=== PATIENT | male | born 1950 | race Caucasian/White ===

== ENCOUNTER → 2023-05-31 11:18 | Outpatient (REF) | payer MEDICARE, OTHER, SELFPAY ==
[2023-05-31 11:40] LABS: HDL Cholesterol 37 mg/dl; LDL Cholesterol, Calculated 54 mg/dl; Total Cholesterol 103 mg/dl (50-199); Triglyceride 64 mg/dl (10-149); Very Low Density Lipoprotein 12 mg/dl (0-30)
== END ==
LOC: OLABN 11:18
PROVIDERS: ATTENDING PHYSICIAN Student in an Organized Health Care Education/Training Program
DX: E78.5 Hyperlipidemia, unspecified (principal)
CPT/HCPCS: 36415; 80061

== ENCOUNTER → 2023-06-11 17:28 | Outpatient (REF) | payer MEDICARE, OTHER, SELFPAY | LOC: OLABN 17:28 | PROVIDERS: ATTENDING PHYSICIAN Student in an Organized Health Care Education/Training Program | DX: R05.9 Cough, unspecified (principal); M62.81 Muscle weakness (generalized) | CPT/HCPCS: 87502 ==

== ENCOUNTER → 2023-06-12 09:19 | Outpatient (REF) | payer MEDICARE, OTHER, SELFPAY ==
[2023-06-12 10:27] LABS: % Basophils 0.4 % (0-2); % Eosinophils 4.5 % (0-6); % Immature Granulocytes 0.2 % (0-0.5); % Lymphocytes 17.6 % (20.5-51.1); % Neutrophils 68.3 % (42.2-75.2); Absolute Eosinophils 0.4 10^3/uL (0-0.7); Absolute Lymphocytes 1.7 10^3/uL (1.2-3.4); Absolute Monocytes 0.9 10^3/uL (0.1-0.6); Absolute Neutrophils 6.7 10^3/uL (1.4-6.5); Hematocrit 29.1 % (39.0-52.0); Hemoglobin 8.9 g/dL (13.0-18.0); Mean Corp Hgb Conc. 30.6 g/dL (33.0-37.0); Mean Corpuscular Hgb 24.8 pg (27.0-31.0); Mean Corpuscular Volume 81.1 fL (80.0-94.0); Mean Platelet Volume 10.7 fL (7.4-10.4); Nucleated Red Blood Cells % 0 % (-); Platelet Count 202 10^3/uL (130-400); Red Blood Cell Count 3.59 10^6/uL (4.70-6.10); Red Cell Dist. Width 14.6 % (11.5-14.5); White Blood Cell Count 9.9 10^3/uL (4.8-10.8)
== END ==
LOC: OLABN 09:19
PROVIDERS: ATTENDING PHYSICIAN Student in an Organized Health Care Education/Training Program
DX: M62.81 Muscle weakness (generalized) (principal)
CPT/HCPCS: 36415; 85025

== ENCOUNTER → 2023-06-14 11:12 | Outpatient (REF) | payer MEDICARE, OTHER, SELFPAY ==
[2023-06-14 11:38] LABS: % Basophils 0.4 % (0-2); % Eosinophils 5.3 % (0-6); % Immature Granulocytes 0.4 % (0-0.5); % Lymphocytes 17.9 % (20.5-51.1); % Monocytes 9.2 % (1.7-9.3); % Neutrophils 66.8 % (42.2-75.2); Absolute Eosinophils 0.5 10^3/uL (0-0.7); Absolute Lymphocytes 1.7 10^3/uL (1.2-3.4); Absolute Monocytes 0.9 10^3/uL (0.1-0.6); Absolute Neutrophils 6.3 10^3/uL (1.4-6.5); Hematocrit 26.8 % (39.0-52.0); Hemoglobin 8.6 g/dL (13.0-18.0); Mean Corp Hgb Conc. 32.1 g/dL (33.0-37.0); Mean Corpuscular Hgb 25.4 pg (27.0-31.0); Mean Corpuscular Volume 79.3 fL (80.0-94.0); Mean Platelet Volume 10.5 fL (7.4-10.4); Nucleated Red Blood Cells % 0 % (-); Platelet Count 184 10^3/uL (130-400); Red Blood Cell Count 3.38 10^6/uL (4.70-6.10); White Blood Cell Count 9.4 10^3/uL (4.8-10.8)
== END ==
LOC: OLABN 11:12
PROVIDERS: ATTENDING PHYSICIAN Student in an Organized Health Care Education/Training Program
DX: M62.81 Muscle weakness (generalized) (principal)
CPT/HCPCS: 36415; 85025

== ENCOUNTER 2023-10-29 01:27 | Inpatient (IN) | payer MEDICARE, OTHER, SELFPAY ==
[2023-10-28] VITALS (7 sets, daily range): BP systolic 81–102; BP diastolic 32–57; BMI 25.1
--- NOTE | 2023-10-28 23:10 | ED.GENMED ---
History of Present Illness
General
Chief Complaint: Breathing Problem
Source: patient, ambulance crew, detention and previous hospital records (Previous hospitalization for urosepsis June 2022. Previous ED visits November 2022 with complaints of muscle tremors of the extremities)
Exam Limitations: clinical condition
Time Seen by Provider: 10/28/23 23:01
Nursing documentation reviewed up to this point in time: agreed with
History of Present Illness
History of Present Illness:
This is a 73-year-old gentleman, chronic resident of a local detention with history of dementia, diabetes, chronic kidney disease, CAD, seizure disorder with prior hospitalization here June 2022 for urosepsis.
He presents to the ED via EMS after apparent witnessed by detention staff to have an episode of vomiting with apparent aspiration and subsequent hypoxia with pulse ox reportedly in the 70s. Upon EMS arrival patient was obtunded, sonorous
respirations but respiratory status promptly improved with repositioning of the head/opening his airway and placing on nonrebreather mask with improvement in pulse ox to 95% and end-tidal CO2 reportedly 25 to 30%. Patient sensorium promptly
improved and is now awake, answering simple questions appropriately.
Heel Builder reports that patient did not require suctioning.
According to detention records patient is DNR status.
He arrives to the ED awake but moderately lethargic, opens his eyes promptly to verbal stimuli and is able to answer simple questions appropriately.
Patient generally does not require supplemental oxygen.
History of seizure disorder, maintained on Keppra but no report of recent seizures.
Past History
Past History
ED Past Medical History: CAD, HTN, Hypercholesterolemia, IDDM, MD, Renal failure, Seizures and Other (Dementia, urosepsis June 2022)
ED Past Surgical History: Cardiac (Stents X 3)
Social History
Tobacco: Former smoker
Alcohol: Occasional
Drug: None
Personal: Other
Living: detention
Employment: Other (imprisoned)
Family History
Family History: Unable to obtain
Phy Exam
Physical Exam
Physical Exam:
GENERAL: 73-year-old gentleman appears older than stated age, awake, mildly lethargic, opens his eyes promptly to verbal stimuli and looks to the examiner. Able to answer simple yes/no questions appropriately. Moderate resting tachypnea noted.
Nonrebreather mask in place. Intermittent harsh cough is noted.
EYE: pupils equal and reactive. anicteric
NECK: Supple, nontender, no meningismus, no significant adenopathy.
ENT: Whitish phlegm/thin liquid noted anterior chest wall and within rodriguez. Oral mucosa is moist.
CARDIAC: Regular rate and rhythm. no murmur.
LUNGS: Moderate resting tachypnea. Intermittent harsh cough. Mildly decreased breath sounds throughout with scattered end expiratory wheezing.
ABDOMEN: Rotund, soft, nondistended, without focal tenderness, no r/g, normoactive BS.
NEUROLOGICAL: Awake, mildly lethargic, oriented x 2, no focal neuro deficits.
SKIN: Warm and dry, mildly pale in color, skin intact. No rash.
MUSCULOSKELETAL: No C/C/E. peripheral pulses are full and equal b/l. No palpable tenderness.
PSYCH: Normal and appropriate interaction.
Scores
Heart Failure Risk
Heart Failure Risk Score: Yes
History of Stroke or TIA: No
History of intubation for respiratory distress: No
Heart rate on ED arrival >/= 110: No
SaO2 <90% on arrival on room air: Yes
HR >/=110 during 3min walk test (or too ill to perform test): Yes
ECG has acute ischemic changes: No
Urea >/=12mmol/L (BUN 33.6mg/dL): No
Serum CO2>/=35mmol/L: No
Troponin I or T elevated to MD Level (0.4mg/dL): No
NT-proBNP >/=5,000ng/L (5,000pg/ml): No
HF Risk Score: 3
Admission Status: HIGH RISK 15.9% Consider SNF treatment or admission to hospital
Course
Orders/Labs/Results
Orders:
Orders
10/28/23 23:05
Electrocardiogram (*1) Urgent
Reason for Study: Other
Other Reason for Exam: sepsis
Cardiac Monitoring- Treatment ONCE
EKG- Treatment ONCE
O2 Therapy [RESP] Urgent
Non-Rebreather Mask: Yes
Titrate/Wean O2 to maintain O2 sat greater than (%): 92
Pulse Ox/cont/shift [RESP] Urgent
Quantity: 1
10/28/23 23:06
Suctioning- Treatment ONCE
CR Chest Portable - 1 View Urgent
Comment:
Reason For Exam: sob, hypoxia
Reason Study Needs to be Portable: Unable to Transport
10/28/23 23:09
0.9% Sodium Chloride 1000 ml [Nss] 2,300 ml IV NOW STA
10/28/23 23:23
Straight cath- Treatment ONCE
Ipratropium/Albuterol Sulfate [Duoneb] 3 ml INH R NOW ONE
10/28/23 23:26
COVID-19 Antigen Urgent
Source: Nasal Swab
Complete Blood Count/With Diff Urgent
Comprehensive Metabolic Panel Urgent
Lactic Acid Q4H
Comment: CANCEL 2nd LACTIC ACID IF 1st LACTIC ACID IS LESS THAN 2
NT-proBNP Urgent
Troponin I Urgent
Blood Culture Q30M
ZOHREH Source: Blood/Venous
Specimen Description:
10/28/23 23:43
Urinalysis Reflex To Culture Urgent
Date Specimen was Collected: 10/28/23
Time Specimen was Collected: 23:40
Urine Microscopic Reflex Cult Urgent
10/28/23 23:45
Blood Culture Q30M
ZOHREH Source: Blood/Venous
Specimen Description:
10/29/23 00:17
Aztreonam [Azactam] 2,000 mg IV NOW STA
Vancomycin 2000 mg IVPB x 1 LOADING DOSE Vancomycin [Vancocin] 2,000 mg 0.9% Sodium Chloride 500 ml [Nss] 500 ml IV NOW
10/29/23 03:15
Lactic Acid Q4H
Comment: CANCEL 2nd LACTIC ACID IF 1st LACTIC ACID IS LESS THAN 2
Abnormal Lab Results
10/28/23 10/28/23
23:26 23:43
RBC 3.44 L 10^6/uL
(4.70-6.10)
Hgb 8.3 L g/dL
(13.0-18.0)
Hct 26.2 L %
(39.0-52.0)
MCV 76.2 L fL
(80.0-94.0)
MCH 24.1 L pg
(27.0-31.0)
MCHC 31.7 L g/dL
(33.0-37.0)
RDW 16.0 H %
(11.5-14.5)
Absolute Lymphs (auto) 0.8 L 10^3/uL
(1.2-3.4)
Absolute Monos (auto) 0.9 H 10^3/uL
(0.1-0.6)
Lymphocytes % 13.5 L %
(20.5-51.1)
Monocytes % 14.0 H %
(1.7-9.3)
Chloride 110 H mmol/L
(98-107)
Carbon Dioxide 21 L mmol/L
(22-30)
BUN 33 H mg/dl
(9-20)
Creatinine 3.1 H mg/dL
(0.7-1.3)
Glucose 135 H mg/dl
(70-99)
Total Protein 6.1 L g/dl
(6.3-8.2)
Urine Ketones Trace A
(Negative)
Ur Occult Blood Reflex 1+ A
(Negative)
Urine Albumin (Reflex) 3+ A
(Neg - Trace)
10/28/23 23:26
10/28/23 23:26
Vital Signs
Initial and Last Documented VS:
Initial Vital Signs
Pulse Resp BP Pulse Ox
95 32 83/57 91
10/28/23 23:04 10/28/23 23:04 10/28/23 23:04 10/28/23 23:04
Last Documented Vital Signs
Temp Pulse Resp BP Pulse Ox
99.4 F 95 32 83/57 91
10/28/23 23:18 10/28/23 23:04 10/28/23 23:04 10/28/23 23:04 10/28/23 23:04
MDM/Problems Addressed
Differential Diagnosis Includes:
Acute hypoxic respiratory failure, concern for aspiration pneumonia, healthcare associated pneumonia, CHF, ACS.
Patient noted to be hypotensive, concern for sepsis syndrome/SIRS.
Pulse ox currently 96 to 97% on nonrebreather mask with end-tidal CO2 at 40.
Will check labs, COVID-19 antigen, lactic acid, blood cultures, urinalysis with reflex to culture, troponin and BNP.
Will check portable chest x-ray, EKG.
Will plan for oral suctioning, nebulizer treatment, continue supplemental oxygen.
IV fluid bolus for hypotension. Consider pressors if needed.
Patient is currently afebrile and no reported fever as per detention staff.
Chronic conditions affecting care: DM, CAD, COPD, Neurological disorder and Kidney disease
*Radiology
Radiology exam reviewed: preliminary read by ED provider (Portable chest x-ray shows no evidence of CHF, I question an early infiltrate left base-new compared to previous film June 2022.)
*Pulse Oximetry
Patient hypoxic: yes
*EKG
Interpreted by ED Provider?: Yes
Comparison EKG: no changes (unchanged from previous save for heart rate has increased from 59 to now 94)
Rate: normal
Rhythm: sinus
[place]: normal axis
Interval: normal interval
QRS Pattern: low voltage
Ischemia: non-specific ST changes
*Railroad Car Letterer Interpretation
Rate: normal
Interpretation: normal
Rhythm: sinus
*Critical Care Note
Total Time (30-74mins, 75-104mins- exclusive of procedures): 30
comment:
Critical care statement: A total of 30 minutes of critical care time was provided for this patient. This includes management of unstable vital signs, evaluation of the patient at bedside, reviewing the patient's pertinent medical records, discussion
with consultants, review of old EKGs and review of pertinent medical records. This time with separate from time utilized to perform the aforementioned documented procedures
Update Note
Update Note:
10/29/2023 0019 AM
Patient is much more awake and alert. Continues with nonproductive cough but oxygen successfully weaned from nonrebreather mask to nasal cannula.
Blood pressure improved after IV fluid bolus now at 100 systolic.
Labs show moderate but stable anemia. Normal white blood cell count.
Acute on chronic kidney disease with creatinine trending up from 1.6 to now 3.1. Lactic acid is normal. Troponin is negative, similar to previous.
BNP is elevated at 1800, no old BNP's to compare. No evidence of CHF on chest x-ray and no prior history of CHF, overall improved after IV fluid bolus.
There is concern for a subtle infiltrate left lower lobe, behind the heart thus we will initiate broad-spectrum antibiotics for coverage of potential gram-negative pneumonia/healthcare associated pneumonia.
Will admit to hospitalist service.
ED Attending Note
-
Portions of this chart may have been created with voice recognition software.� Occasional wrong word or��sound alike� substitutions may have occurred due to the inherent limitations of voice recognition software.
Discharge Plan
Departure
Patient Disposition: Admit
Date of Disposition: 10/29/23
Time of Disposition: 00:24
Admit to: Telemetry
Admit to doctor: Shahzad
Presentation/result/management discussed w/ accepting MD/DO: Hospitalist
Condition: Serious
Discharge Problem:
HCAP (healthcare-associated pneumonia), Acute hypoxemic respiratory failure, Acute on chronic renal failure, concern for aspiration event, SIRS (systemic inflammatory response syndrome), Hypotension r/o sepsis
Prescriptions:
No Action
donepezil 10 MG tablet
10 mg PO HS
lisinopril 10 MG tablet
10 mg PO BID
folic acid 1 MG tablet
1 mg PO DAILY
aspirin 81 MG tablet,chewable
81 mg PO DAILY
amlodipine 10 MG tablet
10 mg PO DAILY 0RF
acetaminophen [Tylenol] 325 mg Tablet
650 mg PO Q4H PRN (Reason: mild pain/fever>100.4)
hydralazine 25 mg Tablet
25 mg PO BID
bisacodyl 10 mg Suppository
10 mg WA DAILY PRN (Reason: if mom ineffective)
escitalopram oxalate [Lexapro] 20 mg Tablet
20 mg PO DAILY
memantine [Namenda] 10 mg Tablet
10 mg PO BID
lactulose 10 gram/15 mL Solution
10 g PO HS PRN (Reason: lack of bm)
potassium chloride 20 mEq Tablet Extended Release
20 meq PO DAILY
levetiracetam [Keppra] 500 mg Tablet
500 mg PO BID
melatonin 3 mg Tablet
3 mg PO HS PRN (Reason: insomnia)
cyanocobalamin (vitamin B-12) 500 mcg Tablet
500 mcg PO WE
simvastatin [Zocor] 20 mg Tablet
20 mg PO HS
gabapentin 100 mg Capsule
100 mg PO BID
ferrous gluconate 324 mg (38 mg iron) Tablet
324 mg PO BID
insulin glargine [Basaglar KwikPen U-100 Insulin] 100 unit/mL (3 mL) Insulin Pen
10 unit SC HS
tamsulosin 0.4 MG capsule
0.4 mg PO QPM
Novolin N NPH U-100 Insulin 100 unit/mL Suspension
6 unit SC DAILY@1630
Novolin N NPH U-100 Insulin 100 unit/mL Suspension
10 unit SC DAILY
clonazepam 0.125 mg tablet,disintegrating
0.125 mg PO HS
clonazepam 0.25 mg tablet,disintegrating
0.25 mg PO DAILY PRN (Reason: tremor ) Qty: 10 0RF
levetiracetam [Keppra] 750 mg tablet
750 mg PO DAILY Qty: 30 0RF
Rx Instructions:
Continue to take 500 mg of Keppra in the morning, but take 750 mg of Keppra in the evening.
Interventions
Interventions:
*Risk Screen - Suicide Last Done: 10/28/23 23:04
*General Assessment Last Done: 10/28/23 23:04
*Neglect/Abuse Screening Last Done: 10/28/23 23:04
*ED COVID-19 Vaccine History Last Done: 10/28/23 23:04
Discharge Date and Time
Print Language: PORTUGUESE
[2023-10-28] MEDS: NSS 2300 ML IV (23:28)
[2023-10-28] MEDS: DUONEB 3 ML INH (23:33)
[2023-10-28 23:46] LABS: % Basophils 0.3 % (0-2); % Eosinophils 5.2 % (0-6); % Immature Granulocytes 0.3 % (0-0.5); % Lymphocytes 13.5 % (20.5-51.1); % Neutrophils 66.7 % (42.2-75.2); Absolute Eosinophils 0.3 10^3/uL (0-0.7); Absolute Lymphocytes 0.8 10^3/uL (1.2-3.4); Absolute Monocytes 0.9 10^3/uL (0.1-0.6); Absolute Neutrophils 4.1 10^3/uL (1.4-6.5); Hematocrit 26.2 % (39.0-52.0); Hemoglobin 8.3 g/dL (13.0-18.0); Mean Corp Hgb Conc. 31.7 g/dL (33.0-37.0); Mean Corpuscular Hgb 24.1 pg (27.0-31.0); Mean Corpuscular Volume 76.2 fL (80.0-94.0); Mean Platelet Volume 10.3 fL (7.4-10.4); Nucleated Red Blood Cells % 0 % (-); Platelet Count 198 10^3/uL (130-400); Red Blood Cell Count 3.44 10^6/uL (4.70-6.10); White Blood Cell Count 6.2 10^3/uL (4.8-10.8)
[2023-10-28 23:51] LABS: Urine Albumin 3+ (Neg - Trace); Urine Bilirubin Negative (Negative); Urine Character Clear (Clear); Urine Color Yellow; Urine Glucose Negative (Negative); Urine Ketone Trace (Negative); Urine Leukocyte Negative (Negative); Urine Nitrite Negative (Negative); Urine Occult Blood 1+ (Negative); Urine Urobilinogen Negative (Neg - 1+)
[2023-10-29] VITALS (41 sets, daily range): BP systolic 78–162; BP diastolic 30–91; BMI 25.2
[2023-10-29] LABS: ALT (SGPT) 16 U/L (0-50); AST (SGOT) 26 U/L (17-59); Albumin 3.5 g/dl (3.5-5.0); Alkaline Phosphatase 92 U/L (38-126); Blood Urea Nitrogen 33 mg/dl (9-20); Calcium 8.5 mg/dl (8.4-10.2); Carbon Dioxide 21 mmol/L (22-30); Chloride 110 mmol/L (98-107); Estimated Creatinine Clearance 22 ml/min; Glucose 135 mg/dl (70-99); Potassium 4.4 mmol/L (3.5-5.1); Sodium 140 mmol/L (135-145); Total Bilirubin 0.3 mg/dl (0.2-1.3); Total Protein 6.1 g/dl (6.3-8.2)
[2023-10-29 00:01] LABS: Lactic Acid 0.7 mmol/L (0.7-2.0)
[2023-10-29 00:04] LABS: COVID-19 Antigen Negative (Negative)
[2023-10-29 00:12] LABS: NT-proBNP 1790 pg/ml; Troponin I 0.025 ng/ml
[2023-10-29] MEDS: AZACTAM 2000 MG IV (00:32)
[2023-10-29 00:33] LABS: Urine Amorphous Seen
[2023-10-29 00:38] LABS: Urine Bacteria Many (Negative); Urine Mucus Few; Urine Squamous Cell >30 /LPF (Few)
[2023-10-29] MEDS: VANCOCIN 540 MG IV (00:48)
[2023-10-29] MEDS: NSS 1000 IV (01:14)
--- NOTE | 2023-10-29 01:18 | HPS.HSE ---
Family Physician
-
Family Physician: Louie Darden DO
Chief Complaint
-
Lethargy / Hypoxemia
History of Present Illness
Patient is a 73y M with PMH significant for dementia, DM-II and CKD who presents to ED from [facility] for evaluation of new cough, hypoxemia and lethargy. History obtained primarily from MD record and ED staff given patient's baseline dementia.
Patient is arousable and will answer Y/N questions - but cannot recall why he was brought to the ED. He denies any difficulty eating / choking / etc. He denies any pain at present. He does admit to sense of SOB at present. No other complaints
from patient.
NH states that patient was found this evening to be lethargic / poorly responsive. He was diaphoretic with coarse breath sounds and 'moist' cough. He had SpO2 measured at 68% on room air. Afebrile. Normal fingerstick glucose.
Patient was transported to ED for further evaluation and treatment.
Medical History
Past Medical History
Past Medical History: Reports Other
Additional Past Medical History:
Senile Dementia with Behavioral Disturbance
DM-II with Neuropathy and Nephropathy
Hypertension
JAMILAH
CKD III
Iron Deficiency Anemia
BPH / Chronic Indwelling Engel Catheter
ASCVD
Past Surgical History: Reports Other
Additional Past Surgical History:
PTCA with Stents
TURBT
Rhinoplasty
Social History
Unable to obtain full social history at this time due to: Dementia
Family History
Family History: Unable to Obtain
Allergies / Home Medications
Allergies reflects when Allergies were last updated in [facility].
Home Medications with original date entered in [facility]
Allergy/Medication List:
Allergies
Allergy/AdvReac Type Severity Reaction Status Date / Time
Penicillins Allergy Unknown Verified 10/28/23 23:03
Home Medications
lisinopril 10 mg tablet 10 mg PO BID Blood pressure 02/12/20
aspirin 81 mg chewable tablet 81 mg PO DAILY Blood clot prevention/tx 02/23/20
amlodipine 10 mg tablet 10 mg PO DAILY 02/27/20
acetaminophen 325 mg tablet (Tylenol) 650 mg PO Q4H PRN mild pain/fever>100.4 07/02/22
bisacodyl 10 mg rectal suppository 10 mg CA DAILY PRN if mom ineffective 07/02/22
escitalopram oxalate 20 mg tablet (Lexapro) 15 mg PO DAILY 07/02/22
gabapentin 100 mg capsule 100 mg PO BID 07/02/22
hydralazine 25 mg tablet 25 mg PO BID 07/02/22
insulin glargine 100 unit/mL (3 mL) subcutaneous pen (Basaglar KwikPen U-100 Insulin) 10 unit SC HS 07/02/22
lactulose 10 gram/15 mL oral solution 10 g PO HS PRN lack of bm 07/02/22
levetiracetam 500 mg tablet (Keppra) 500 mg PO DAILY 07/02/22
memantine 10 mg tablet (Namenda) 10 mg PO BID 07/02/22
potassium chloride 20 mEq tablet,extended release 20 meq PO DAILY 07/02/22
simvastatin 20 mg tablet (Zocor) 20 mg PO HS 07/02/22
tamsulosin 0.4 mg capsule 0.4 mg PO QPM 07/02/22
clonazepam 0.125 mg disintegrating tablet 0.25 mg PO HS 11/28/22
insulin NPH isoph U-100 human 100 unit/mL subcutaneous suspension (Novolin N NPH U-100 Insulin isophane) 6 unit SC DAILY@1630 11/28/22
insulin NPH isoph U-100 human 100 unit/mL subcutaneous suspension (Novolin N NPH U-100 Insulin isophane) 10 unit SC DAILY 11/28/22
levetiracetam 750 mg tablet (Keppra) 750 mg PO HS 10/29/23
Review of Systems
-
History Source: Patient (limited ROS due to dementia)
A 12 point ROS was completed and negative except as noted: Yes
Respiratory: Reports Trouble Breathing
Cardiac: Denies Chest Pain or Palpitations
Abdomen/GI: Denies Abdominal Pain, Nausea, Vomiting or Diarrhea
Neurological: Denies Headache
Physical Exam
Vital Signs
Vital Signs
Temp Pulse Resp BP Pulse Ox
99.4 F 90 23 86/37 96
10/28/23 23:18 10/29/23 01:15 10/29/23 01:15 10/29/23 01:12 10/29/23 01:15
Physical Exam
General: Other (73y M in no apparent distress. Arousable. Answers questions / follows commands.)
HEENT: Other (Thick neck. No appreciable JVD.)
Respiratory: Other (Decreased at bases. Few coarse breath sounds at the bases.)
Cardiac: S1/S2 and Regular Rhythm
GI: Other (Obese, not tender, pos BS.)
Genito-urinary: Other (Engel in place. No urine in device at present.)
Musculoskeletal: No Clubbing, No Cyanosis and No Edema
Neuro: Other (Patient wakes to verbal stimuli. Follows commands. Answers questions but has poor recall of events leading to hospitalization.)
Laboratory Results
-
10/28/23 23:26
10/28/23 23:26
Laboratory Results
Lactic Acid 0.7 mmol/L (0.7-2.0) 10/28/23 23:26
Total Bilirubin 0.3 mg/dl (0.2-1.3) 10/28/23 23:26
AST 26 U/L (17-59) 10/28/23 23:
ALT 16 U/L (0-50) 10/28/23 23:26
Alkaline Phosphatase 92 U/L (38-126) 10/28/23 23:26
Troponin I 0.025 ng/ml 10/28/23 23:26
Impression/Plan
-
A/P: Patient is a 73y M with PMH significant for dementia with behavioral disturbance, ASCVD, hypertension and DM-II who presents to ED for evaluation of cough, hypoxemia and lethargy.
LL Pneumonia
Acute Hypoxemic Respiratory Failure secondary to the above
Acute TME secondary to the above
Sepsis secondary to the above
- Admit for further evaluation and treatment.
- Patient presents with tachycardia, tachypnea and LL infiltrate c/w pneumonia.
- Evidence for life threatening organ dysfunction in the forma of acute hypoxemia, KAVON and acute TME.
- Continue IV abx with ceftriaxone and metronidazole given risk / concern for aspiration.
- Supportive care including O2 support, IVFs, etc.
- Follow for clinical improvement.
- Follow-up culture data.
- Aspiration precautions and Speech evaluation. NPO for now.
KAVON on CKD III
BPH / Neurogenic Bladder
- SCr = 3.1 compared to baseline of 1.6.
- Chronic Engel in place - maintain.
- IVF support overnight and follow for return to baseline renal function.
- Avoid nephrotoxic agents / hypotension / etc.
ASCVD
- Stable. Continue ASA, statin, etc.
DM-II
- Stable. Hold NPH insulin for now.
- Continue HS Basaglar.
- Monitor glucose and cover with SSI as needed.
- Update A1C.
- Resume usual regimen once tolerating steady PO intake.
Benign Hypertension
- Low BP in the ED, likely secondary to sepsis.
- Responded to fluid boluses thus far.
- Hold BP medications acutely.
- Restart when appropriate / necessary.
Iron Deficiency Anemia
- Stable. Hgb at / near known baseline.
- Check iron studies and consider IV replacement if needed.
Senile Dementia with Behavioral Disturbance
- Risk for acute delirium / agitation during hospitalization.
- Continue OP Keppra. Hold meds as needed for sedation / lethargy.
- Follow for changes from baseline.
DVT Prophylaxis: Subcut Heparin
Code Status: DNR
[2023-10-29] MEDS: LR 1000 IV ×3 (03:48→20:09)
--- NOTE | 2023-10-29 04:00 | PTCARENOTE ---
pt IMU status admit from ER, lethargic, does not open eyes or follow commands, B/L pupils 3R. SR-ST/pvcs HR high 90s-low 100s. Sat 96% on 5LNC- +weak/moist cough, small amt thick white secretions suctioned from mouth. crs t/o/diminished, tachypneic
RR high 20s-low 30s. turned, skin care- stage 2 noted on sacrum-measured/foam applied, CHG cloths, repositioned. #25 condom cath applied. bed alarm on. care ongoing.
[2023-10-29] MEDS: FLUSH (NSS) 1 FLUSH IV ×2 (04:05→04:16)
[2023-10-29] MEDS: ROCEPHIN 1000 MG IV (04:15)
[2023-10-29] MEDS: STERILE WATER FOR INJECTION 10 ML IV (04:15)
[2023-10-29 04:19] LABS: Hematocrit 26.4 % (39.0-52.0); Hemoglobin 7.9 g/dL (13.0-18.0); Mean Corp Hgb Conc. 29.9 g/dL (33.0-37.0); Mean Corpuscular Hgb 23.9 pg (27.0-31.0); Mean Corpuscular Volume 79.8 fL (80.0-94.0); Mean Platelet Volume 9.5 fL (7.4-10.4); Platelet Count 173 10^3/uL (130-400); Red Blood Cell Count 3.31 10^6/uL (4.70-6.10); Red Cell Dist. Width 15.8 % (11.5-14.5); White Blood Cell Count 9.8 10^3/uL (4.8-10.8)
[2023-10-29 04:36] LABS: ALT (SGPT) 15 U/L (0-50); AST (SGOT) 23 U/L (17-59); Albumin 3.3 g/dl (3.5-5.0); Alkaline Phosphatase 85 U/L (38-126); Blood Urea Nitrogen 31 mg/dl (9-20); Calcium 7.8 mg/dl (8.4-10.2); Carbon Dioxide 18 mmol/L (22-30); Chloride 115 mmol/L (98-107); Direct Bilirubin 0.2 mg/dl (0.0-0.4); Estimated Creatinine Clearance 25 ml/min; Glucose 140 mg/dl (70-99); Iron 26 ug/dl (49-181); Magnesium 2.1 mg/dl (1.6-2.3); Phosphorus 3.6 mg/dl (2.5-4.5); Potassium 4.5 mmol/L (3.5-5.1); Sodium 143 mmol/L (135-145); Total Bilirubin 0.3 mg/dl (0.2-1.3); Total Protein 5.8 g/dl (6.3-8.2); eGFR 24.43
[2023-10-29 04:45] LABS: Percent Saturation 9 % (20-50); Total Iron Binding Capacity 265 ug/dl (261-462)
[2023-10-29] MEDS: FLAGYL 500 MG 100 IV ×3 (05:44→22:03)
--- NOTE | 2023-10-29 06:03 | PTCARENOTE ---
temp 102.3F, pt lethargic/unable to take PO at this time. BMurdock HEALTH DATA ADMINISTRATOR aware- 1 x dose Ofirmev ordered by HEALTH DATA ADMINISTRATOR.
[2023-10-29] MEDS: OFIRMEV 100 IV (06:10)
[2023-10-29 06:46] LABS: Glucose - Point of Care 136 mg/dl (70-99)
[2023-10-29 08:04] LABS: Glycohemoglobin (HgbA1c) 6.6 % (4.0-5.6)
[2023-10-29] MEDS: HEPARIN 5000 UNITS SC ×2 (08:18→20:09)
--- NOTE | 2023-10-29 09:25 | PTOTSP ---
Speech Language Pathology
Pt seen for clinical bedside swallow evaluation. P.O. trials of thin liquids via pipetted straw provided. Swallow initiated with first trial, but not with second. Suctioned from oral cavity by MEDICAL DONATION PROFESSIONAL. Further P.O. trials deferred.
Recommend:
(1) Strict NPO
(2) Oral care 4x/day with suctioning as needed
(3) Non-oral meds
(4) Not apporpriate for Aspiration Risk Hydration Protocol (ARHP) given lethargy
(5) MEDICAL DONATION PROFESSIONAL to continue to follow
--- NOTE | 2023-10-29 09:55 | PTCARENOTE ---
report received, assessments per work list. non verbal, responsive to pain. coughing, drooling. orally suctions for large amounts thick secretions. condom cath in place, clear yellow urine. ST at bedside to evaluate
[2023-10-29 12:22] LABS: Glucose - Point of Care 115 mg/dl (70-99)
--- NOTE | 2023-10-29 13:07 | CM ---
CM following re: discharge planning.
Reviewed pt's chart, met with pt.
Pt is a 73 year old male, admitted with primary dx of Aspiration pneumonia.
Pt is a halfway care resident at [facility], w/c bound, requires assistance with transferring. Pt is on Medicaid 15 day bed hold and per [facility] admissions department pt will be accepted back when medically stable.
D/C plan: return back to [facility] for a intermediate card tender care.
CM will follow with discharge plan updates as hospitalization progresses
--- NOTE | 2023-10-29 13:55 | W.PN.UPDATE ---
Update Note
Progress Note Update
Non-billable addendum
receiving IV abx for aspiration, currently NPO per ST
No complaints
Assessment:
LL Pneumonia
Acute Hypoxemic Respiratory Failure secondary to the above
Acute TME secondary to the above
Sepsis secondary to the above
- Patient presents with tachycardia, tachypnea and LL infiltrate c/w pneumonia.
- Evidence for life threatening organ dysfunction in the forma of acute hypoxemia, KAVON and acute TME.
- Continue IV abx with ceftriaxone and metronidazole given risk / concern for aspiration.
- Supportive care including O2 support, IVFs, etc.
- Follow for clinical improvement.
- Follow-up culture data.
- Aspiration precautions and Speech evaluation. NPO for now.
KAVON on CKD III
BPH/Neurogenic Bladder
- SCr = 3.1 compared to baseline of 1.6.
- Chronic Engel in place - maintain.
- IVF support continues. Follow for return to baseline renal function.
- Avoid nephrotoxic agents / hypotension / etc.
ASCVD
- Stable. Continue ASA, statin, etc.
DM-II
- Stable. Hold NPH insulin for now.
- Continue HS Basaglar.
- Monitor glucose and cover with SSI as needed.
- A1C 6.6%
- Resume usual regimen once tolerating steady PO intake.
Benign Hypertension
- Low BP in the ED, likely secondary to sepsis.
- Responded to fluid boluses thus far.
- Hold BP medications acutely.
- Restart when appropriate/necessary.
Iron Deficiency Anemia
- Stable. Hgb at/near known baseline.
- Check iron studies and consider IV replacement if needed.
Senile Dementia with Behavioral Disturbance
- Risk for acute delirium / agitation during hospitalization.
- Continue OP Keppra. Hold meds as needed for sedation / lethargy.
- Follow for changes from baseline.
DVT Prophylaxis: Subcut Heparin
Code Status: DNR
[2023-10-29] MEDS: ASPIRIN 300 MG RECTAL (15:57)
[2023-10-29 17:39] LABS: Glucose - Point of Care 103 mg/dl (70-99)
--- NOTE | 2023-10-29 20:15 | PTCARENOTE ---
servicing rep, pt drowsy, opens eyes with stimulation- some verbal response/disoriented. when asked if pt knows he is in the hospital he states 'only because you told me'. afebrile. SB-SR HR 50s-60s. Sat 94% on 4LNC. mouth care done, Chest PT via
Sport Bed. B/L IV WNL- LR infusing per work list. condom cath intact. bed alarm on.
[2023-10-29] MEDS: KEPPRA 750 MG IV (22:04)
[2023-10-29] MEDS: LANTUS 0.100000000000000006 UNITS SC (22:04)
[2023-10-30] VITALS (32 sets, daily range): BP systolic 142–173; BP diastolic 54–84; PULSE 56–57; O2SAT 96–97; BMI 27.1
[2023-10-30 00:11] LABS: Glucose - Point of Care 95 mg/dl (70-99)
[2023-10-30 03:48] LABS: Hematocrit 25.8 % (39.0-52.0); Hemoglobin 7.7 g/dL (13.0-18.0); Mean Corp Hgb Conc. 29.8 g/dL (33.0-37.0); Mean Corpuscular Hgb 23.5 pg (27.0-31.0); Mean Corpuscular Volume 78.9 fL (80.0-94.0); Mean Platelet Volume 10.1 fL (7.4-10.4); Platelet Count 169 10^3/uL (130-400); Red Blood Cell Count 3.27 10^6/uL (4.70-6.10); Red Cell Dist. Width 15.6 % (11.5-14.5); White Blood Cell Count 9.6 10^3/uL (4.8-10.8)
[2023-10-30 04:07] LABS: Blood Urea Nitrogen 24 mg/dl (9-20); Calcium 8.4 mg/dl (8.4-10.2); Carbon Dioxide 21 mmol/L (22-30); Chloride 114 mmol/L (98-107); Estimated Creatinine Clearance 32 ml/min; Glucose 88 mg/dl (70-99); Potassium 3.9 mmol/L (3.5-5.1); Sodium 145 mmol/L (135-145); eGFR 33.03
[2023-10-30] MEDS: FLUSH (NSS) 1 FLUSH IV ×2 (04:49→04:55)
[2023-10-30] MEDS: STERILE WATER FOR INJECTION 10 ML IV (04:55)
[2023-10-30] MEDS: ROCEPHIN 1000 MG IV (04:55)
[2023-10-30 06:05] LABS: Glucose - Point of Care 92 mg/dl (70-99)
[2023-10-30] MEDS: FLAGYL 500 MG 100 IV ×3 (06:18→21:08)
[2023-10-30] MEDS: LR 1000 IV (06:18)
[2023-10-30] MEDS: KEPPRA 500 MG IV (09:20)
[2023-10-30] MEDS: ASPIRIN 300 MG RECTAL (09:21)
[2023-10-30] MEDS: HEPARIN 5000 UNITS SC ×2 (09:21→21:07)
--- NOTE | 2023-10-30 09:26 | PN.CDI ---
CDI
- -
CDI:
Physician Documentation Request
Admit Date: 10/29/23 01:27
Dear Doctor Sravan,
Please review the following and provide your response in the progress notes.
Clinical Indicators:
Pt admitted with Sepsis and Pneumonia
10/28 Speech Therapy: 'P.O. trials of thin liquids via pipetted straw provided. Swallow initiated with first trial, but not with second. Suctioned from oral cavity by [employer] OFFBEARER. Further P.O. trials deferred...Strict NPO...Not apporpriate for Aspiration
Risk Hydration Protocol (ARHP) given lethargy..'
10/28 update PN: 'receiving IV abx for aspiration, currently NPO per ST'
Based on the above, could you please clarify in the Progress Notes further specificity regarding the known, suspected or likely type of pneumonia you are treating (recognizing the specific organism may not be known)?
Aspiration Pneumonia - indicate substance such as food or vomitus, oils or other solids or liquids
Other organism - specify known or suspected type
Other type
Use of terms such as suspected, likely, concern for, or probable (associated with a specific diagnosis that is being evaluated, monitored, or treated as if it exists) are acceptable and can be coded in the inpatient setting, when documented at the
time of discharge.
Thank you,
Gita Ventura RN, BSN
CDI Specialist
Available via [place] [employer]
Please use your independent medical judgment in providing your response.
[2023-10-30 09:31] LABS: Free T4 1.28 ng/dl (0.78-2.19)
--- NOTE | 2023-10-30 09:36 | PN.CDI ---
CDI
- -
CDI:
Physician Documentation Request
Admit Date: 10/29/23 01:27
Dear Doctor Sravan,
Please review the following and provide your response in the progress notes.
Clinical Indicators:
Pt admitted with Sepsis and Pneumonia
10/27 dean of admissions assessment noted stage 2 sacral Pressure Injury POA
Physician documentation of the type and location of wounds is required for compliant documentation. Based on the above clinical findings and your assessment, please provide the following in your progress note:
1. Location of the ulcer/wound, including laterality.
Sacral Pressure (decubitus) ulcer
Other
Use of terms such as suspected, likely, concern for, or probable (associated with a specific diagnosis that is being evaluated, monitored, or treated as if it exists) are acceptable and can be coded in the inpatient setting, when documented at the
time of discharge.
Thank you,
Gita Ventura RN, BSN
CDI Specialist
Available via [employer]
Please use your independent medical judgment in providing your response.
*Source: National Pressure Ulcer Advisory Panel (NPUAP)
--- NOTE | 2023-10-30 10:30 | PTOTSP ---
Speech Language Pathology
Pt seen for dysphagia tx. Trialed thin liquids via straw and puree via tsp. Pt reporting globus sensation in throat post puree. No overt signs of aspiration. Pt is at a high risk for aspiration given dementia and current suspected aspiration PNA.
Recommend:
(1) VSE 7/3 prior to considering diet initiation
(2) NPO pending VSE
(3) Allow ice chips and sips of water sparingly post oral care given supervision per Aspiration Risk Hydration Protocol (ARHP)
(4) Non-oral meds as able
(5) REAL ESTATE ECONOMIST to continue to follow
--- NOTE | 2023-10-30 11:06 | W.PN.HOSP.TC ---
Today's Communication/Plan
-
continue IVF
Assessment / Plan
Assessment / Plan
Assessment:
LL Pneumonia
Acute Hypoxemic Respiratory Failure secondary to the above
Acute TME secondary to the above
Sepsis secondary to the above
- Patient presents with tachycardia, tachypnea and LL infiltrate c/w pneumonia.
- Evidence for life threatening organ dysfunction in the forma of acute hypoxemia, KAVON and acute TME.
- Continue IV abx with ceftriaxone and metronidazole given risk / concern for aspiration pneumonia of food or vomitus
- Supportive care including O2 support, IVFs, etc.
- Follow for clinical improvement.
- Follow-up culture data.
- Aspiration precautions and Speech evaluation. NPO for now. on IVF
- VSE tomorrow
KAVON on CKD III
BPH/Neurogenic Bladder
- SCr = 3.1 at admission, now 2.1 compared to baseline of 1.6.
- Chronic Engel in place - maintain.
- IVF support continues. Follow for return to baseline renal function.
- Avoid nephrotoxic agents/hypotension/etc.
ASCVD
- Stable. Continue ASA, statin, etc.
DM-II
- Stable. Hold NPH insulin for now.
- Continue HS Basaglar.
- Monitor glucose and cover with SSI as needed.
- A1C 6.6%
- Resume usual regimen once tolerating steady PO intake.
Benign Hypertension
- Low BP in the ED, likely secondary to sepsis.
- Responded to fluid boluses thus far.
- Hold BP medications acutely.
- Restart possible in AM
- continue IVF for now
Iron Deficiency Anemia
- Stable. Hgb at/near known baseline.
- Check iron studies and consider IV replacement if needed.
Senile Dementia with Behavioral Disturbance
- Risk for acute delirium/agitation during hospitalization.
- Continue Keppra as IV. Hold meds as needed for sedation / lethargy.
- Follow for changes from baseline.
stage 2 sacral Pressure Injury POA
Brief NSVT
- asymptomatic
- will monitor
- lytes are ok
DVT Prophylaxis: SC Heparin
Code Status: DNR
Anticipated Discharge: > 48 hours
Subjective/Interval History
-
Date of Service: October 30, 2023
more alert today, no complaints
Objective Data
-
Labs:
Laboratory Results
10/30/23
03:40
WBC 9.6
Hgb 7.7 L
Hct 25.8 L
Plt Count 169
Sodium 145
Potassium 3.9
Chloride 114 H
Carbon Dioxide 21 L
BUN 24 H
Creatinine 2.1 H
Glucose 88
Calcium 8.4
Vital Signs:
Vital Signs
Temp Pulse Resp BP Pulse Ox
97.8 F 66 20 162/71 97
10/30/23 07:07 10/30/23 07:54 10/30/23 07:54 10/30/23 07:54 10/30/23 09:36
I&O
10/29/23 10/30/23 10/31/23
06:59 06:59 06:59
Intake Total 450 / 575 3000 / 3125 500 / 500
Output Total 150 / 150 3450 / 4400 950 / 950
Balance 300 / 425 -450 / -1275 -450 / -450
Physical Exam
-
General: No Apparent Distress
HEENT: Normocephalic and Atraumatic
Respiratory: Negative Wheezes
Cardiac: Regular Rhythm and S1/S2
GI: Soft
Musculoskeletal: No Edema
Psych: Calm and Apparent Dementia
Data Reviewed
-
Total Time Spent with Patient (in minutes): 42
Labs: Labs Reviewed by me
[2023-10-30 12:26] LABS: Glucose - Point of Care 76 mg/dl (70-99)
--- NOTE | 2023-10-30 14:32 | PTCARENOTE ---
Patient is off nasal cannula, spO2 is 98% on RA. Continues on abx, fluids changed given pt's NPO status, plan is for video swallow study tomorrow. Pt remains disoriented to time and situation.
[2023-10-30] MEDS: SODIUM BICARBONATE 1150 MEQ IV (14:52)
--- NOTE | 2023-10-30 15:58 | PTCARENOTE ---
Reached out to hospitalist regarding lazaro order. Confirmed with MD that patient currently has an external catheter not an indwelling. MD was okay with this and will be discontinuing indwelling lazaro order.
[2023-10-30 17:33] LABS: Glucose - Point of Care 104 mg/dl (70-99)
--- NOTE | 2023-10-30 20:00 | PTCARENOTE ---
rec`d pt at 1900 resting in bed. pt`s feet hanging over side of bed. bed alarm placed and pillows placed on either side of pt. pt knows self. very slow speech at times. forgetful. SB on monitor. hr 50s-60s. moist cough, RA POX 97%. no BM. condom
cath in place. stage 2 on sacrum. D5W w/ bicarb running. call frias in reach. safe environment maintained.
[2023-10-30] MEDS: KEPPRA 750 MG IV (21:08)
[2023-10-30] MEDS: LANTUS 0.100000000000000006 UNITS SC (21:15)
[2023-10-30 21:17] LABS: Glucose - Point of Care 90 mg/dl (70-99)
--- NOTE | 2023-10-30 22:12 | PTCARENOTE ---
CHERY Roland aware of pt`s SBP maintaining in 160s-170s. no new orders at this time.
[2023-10-31] VITALS (13 sets, daily range): BP systolic 134–187; BP diastolic 60–81; BMI 25.8
[2023-10-31 00:09] LABS: Glucose - Point of Care 108 mg/dl (70-99)
[2023-10-31] MEDS: APRESOLINE 5 MG IV (00:26)
[2023-10-31 04:59] LABS: Hemoglobin 8.2 g/dL (13.0-18.0); Mean Corp Hgb Conc. 30.4 g/dL (33.0-37.0); Mean Corpuscular Hgb 23.2 pg (27.0-31.0); Mean Corpuscular Volume 76.3 fL (80.0-94.0); Mean Platelet Volume 9.9 fL (7.4-10.4); Platelet Count 208 10^3/uL (130-400); Red Blood Cell Count 3.54 10^6/uL (4.70-6.10); Red Cell Dist. Width 15.3 % (11.5-14.5); White Blood Cell Count 8.1 10^3/uL (4.8-10.8)
[2023-10-31] MEDS: FLAGYL 500 MG 100 IV (05:10)
[2023-10-31] MEDS: ROCEPHIN 1000 MG IV (05:10)
[2023-10-31] MEDS: FLUSH (NSS) 1 FLUSH IV ×2 (05:10→05:11)
[2023-10-31] MEDS: STERILE WATER FOR INJECTION 10 ML IV (05:10)
[2023-10-31 05:14] LABS: Blood Urea Nitrogen 21 mg/dl (9-20); Calcium 8.4 mg/dl (8.4-10.2); Carbon Dioxide 26 mmol/L (22-30); Chloride 106 mmol/L (98-107); Estimated Creatinine Clearance 40 ml/min; Glucose 106 mg/dl (70-99); Potassium 3.5 mmol/L (3.5-5.1); Sodium 141 mmol/L (135-145); eGFR 42.57
[2023-10-31 07:36] LABS: Glucose - Point of Care 101 mg/dl (70-99)
[2023-10-31] MEDS: ASPIRIN 300 MG RECTAL (07:46)
[2023-10-31] MEDS: HEPARIN 5000 UNITS SC (07:50)
[2023-10-31] MEDS: KEPPRA 500 MG IV (07:50)
--- NOTE | 2023-10-31 08:22 | PTCARENOTE ---
pt received from previous rn- aox1, follows most commands. reoriented. on room air sats in 90s, nsr to sb on monitor. turned and repositioned, oral care provided. pt in for swallow study. all safety precautions in place, bed alarm on, call frias
within reach.
--- NOTE | 2023-10-31 09:36 | PTOTSP ---
Speech Language Pathology
VIDEOFLUOROSCOPIC SWALLOWING EXAMINATION (VSE) completed. Overall, pt with mild oropharyngeal dysphagia. Impulsive rate of intake noted. Supraglottic penetration noted with thin liquids. No aspiration. Only trace intermittent pharyngeal
residue.
Recommend:
(1) Initiate IDDSI Level 4 (Puree) and Thin liquids
(2) Aspiration precautions: sit upright, full supervision with assist as needed, slow rate
(3) Meds as tolerated
(4) WOOD LATHE OPERATOR to continue to follow
--- NOTE | 2023-10-31 10:54 | W.PN.HOSP.TC ---
Today's Communication/Plan
-
await diet trial, ok goes ok can dc back to [facility]
Assessment / Plan
Assessment / Plan
Assessment:
LL Pneumonia
Acute Hypoxemic Respiratory Failure secondary to the above
Acute TME secondary to the above
Sepsis secondary to the above
- Patient presents with tachycardia, tachypnea and LL infiltrate c/w pneumonia.
- Evidence for life threatening organ dysfunction in the forma of acute hypoxemia, KAVON and acute TME.
- Continue IV abx with ceftriaxone and metronidazole given risk/concern for aspiration pneumonia of food or vomitus
- Supportive care including O2 support, IVFs, etc.
- Follow for clinical improvement.
- Follow-up culture data.
- Aspiration precautions and Speech evaluation. NPO for now. on IVF
- VSE today; puree/thins
KAVON on CKD III
BPH/Neurogenic Bladder
- SCr = 3.1 at admission, now 1.7 compared to baseline of 1.6.
- Chronic Engel in place - maintain.
- IVF support continues. Follow for return to baseline renal function.
- Avoid nephrotoxic agents/hypotension/etc.
ASCVD
- Stable. Continue ASA, statin, etc.
DM-II
- Stable. Hold NPH insulin for now.
- Continue HS Basaglar.
- Monitor glucose and cover with SSI as needed.
- A1C 6.6%
- Resume usual regimen once tolerating steady PO intake.
Benign Hypertension
- hypotension; improved and responded to IVF; now elevated so will resume home BP meds
Iron Deficiency Anemia
- Stable. Hgb at/near known baseline.
- Check iron studies and consider IV replacement if needed.
Senile Dementia with Behavioral Disturbance
- Risk for acute delirium/agitation during hospitalization.
- Continue Keppra as IV. Hold meds as needed for sedation / lethargy.
- Follow for changes from baseline.
stage 2 sacral Pressure Injury POA
Brief NSVT
- asymptomatic
- will monitor
- lytes are ok
DVT Prophylaxis: SC Heparin
Code Status: DNR
Anticipated Discharge: Within 24 hours
Subjective/Interval History
-
Date of Service: October 31, 2023
no new complaints
drinking water ok, no solid food trialed yet
Objective Data
-
Labs:
Laboratory Results
10/31/23
04:42
WBC 8.1
Hgb 8.2 L
Hct 27.0 L
Plt Count 208 D
Sodium 141
Potassium 3.5
Chloride 106
Carbon Dioxide 26
BUN 21 H
Creatinine 1.7 H
Glucose 106 H
Calcium 8.4
Vital Signs:
Vital Signs
Temp Pulse Resp BP Pulse Ox
98.4 F 68 20 174/73 96
10/31/23 10:13 10/31/23 10:13 10/31/23 10:13 10/31/23 10:13 10/31/23 10:13
I&O
10/30/23 10/31/23 11/01/23
06:59 06:59 06:59
Intake Total 3000 / 3125 1100 / 1100
Output Total 3450 / 4400 2049 650 / 650
Balance -450 / -1275 -950 / -950 -650 / -650
Physical Exam
-
General: No Apparent Distress
HEENT: Normocephalic and Atraumatic
Respiratory: Negative Wheezes
Cardiac: Regular Rhythm and S1/S2
GI: Soft
Neuro: Awake
Psych: Apparent Dementia
Data Reviewed
-
Total Time Spent with Patient (in minutes): 41
Labs: Labs Reviewed by me
--- NOTE | 2023-10-31 11:16 | W.DS.TRANS ---
DC Summary - Automatic I Threading Machine Feeder
-
Discharge Instructions:
Discharge Diagnosis/Procedures aspiration pneumonia, KAVON on CKD
Additional Diets IDDSI puree 4 diet
Activity As tolerated
Bathing Restrictions None
Other Services PT,OT
Instructions:
Stand-Alone Forms:
Changes to Home Medications: No
Discharge Medications:
DC Medications w/original date entered in [facility]
lisinopril 10 mg tablet 10 mg PO BID Blood pressure 02/12/20
aspirin 81 mg chewable tablet 81 mg PO DAILY Blood clot prevention/tx 02/23/20
amlodipine 10 mg tablet 10 mg PO DAILY 02/27/20
acetaminophen 325 mg tablet (Tylenol) 650 mg PO Q4H PRN mild pain/fever>100.4 07/02/22
bisacodyl 10 mg rectal suppository 10 mg [place] DAILY PRN if mom ineffective 07/02/22
escitalopram oxalate 20 mg tablet (Lexapro) 15 mg PO DAILY Mental Health/Anxiety 07/02/22
gabapentin 100 mg capsule 100 mg PO BID Pain 07/02/22
hydralazine 25 mg tablet 25 mg PO BID Blood Pressure 07/02/22
insulin glargine 100 unit/mL (3 mL) subcutaneous pen (Basaglar KwikPen U-100 Insulin) 10 unit SC HS Diabetes 07/02/22
lactulose 10 gram/15 mL oral solution 10 g PO HS PRN lack of bm 07/02/22
levetiracetam 500 mg tablet (Keppra) 500 mg PO DAILY Mental Health/Anxiety 07/02/22
memantine 10 mg tablet (Namenda) 10 mg PO BID Mental Health/Anxiety 07/02/22
potassium chloride 20 mEq tablet,extended release 20 meq PO DAILY Electrolyte Repletion 07/02/22
simvastatin 20 mg tablet (Zocor) 20 mg PO HS High Cholesterol 07/02/22
tamsulosin 0.4 mg capsule 0.4 mg PO QPM Urinary Issue 07/02/22
insulin NPH isoph U-100 human 100 unit/mL subcutaneous suspension (Novolin N NPH U-100 Insulin isophane) 6 unit SC DAILY@1630 Diabetes 11/28/22
insulin NPH isoph U-100 human 100 unit/mL subcutaneous suspension (Novolin N NPH U-100 Insulin isophane) 10 unit SC DAILY Diabetes 11/28/22
levetiracetam 750 mg tablet (Keppra) 750 mg PO HS Mental Health/Anxiety 10/29/23
cefdinir 300 mg capsule 300 mg PO Q12 10 days #20 caps 10/31/23
clonazepam 0.125 mg disintegrating tablet 0.25 mg (2 x 0.125 mg) PO HS Mental Health/Anxiety #6 tabs 10/31/23
metronidazole 500 mg tablet 500 mg PO Q8 #30 tabs 10/31/23
Home Medication Changes
Pending Results: No
Total time spent discharging patient (in min): 42
[2023-10-31 11:40] LABS: Glucose - Point of Care 107 mg/dl (70-99)
--- NOTE | 2023-10-31 11:44 | CM ---
CM following re: discharge planning.
Reviewed pt's chart, met with pt and spoke to pt's spouse Kenyetta over the phone to update on discharge plan progress.
Discharge order noted. Both pt and his spouse are aware, expressed their agreement with discharge. IMM reviewed, placed on chart, pt has a copy. pt's spouse stated she spoke to MD and agrees with pt discharges back to [facility].
A referral to [facility] made yesterday, updated clinical provided today. per [facility] agency service coordinator Jl, pt is accepted for admission to [facility] today for a long term care social worker care.
to arrange transportation BLS with pick pulling machine tender time around 4:00 p.m. PMNC completed, left with [facility].
[facility] nursing report: [phone]
Discharge instructions fax: [phone]
D/C plan: return back to [facility] for a long term care social worker care
[2023-10-31] MEDS: FLAGYL 500 MG PO (11:47)
[2023-10-31] MEDS: OMNICEF 300 MG PO (11:47)
[2023-10-31] MEDS: NORVASC 10 MG PO (11:47)
[2023-10-31] MEDS: ASPIR LOW (ENTERIC COATED) 81 MG PO (11:47)
== END 2023-10-31 16:07 | DRG 871 ==
LOC: 4 WEST ACU 01:27
PROVIDERS: ADMITTING PHYSICIAN Hospitalist; ATTENDING PHYSICIAN Internal Medicine; EMERGENCY PHYSICIAN Emergency Medicine; FAMILY PHYSICIAN Student in an Organized Health Care Education/Training Program
DX: A41.9 Sepsis, unspecified organism (principal); J69.0 Pneumonitis due to inhalation of food and vomit; J96.01 Acute respiratory failure with hypoxia; N17.9 Acute kidney failure, unspecified; Z11.52 Encounter for screening for COVID-19; N18.30 Chronic kidney disease, stage 3 unspecified; E11.9 Type 2 diabetes mellitus without complications; I10 Essential (primary) hypertension; D50.9 Iron deficiency anemia, unspecified; Z66 Do not resuscitate; L89.152 Pressure ulcer of sacral region, stage 2
CPT/HCPCS: 51701; 71045; 74230; 80048; 80053; 81003; 81015; 82248; 82962; 83036; 83540; 83550; 83605; 83735; 83880; 84100; 84439; 84443; 84484; 85025; 85027; 87040; 87070; 87086; 87811; 92526; 92610; 92611; 93005; 94640; 94667; 96365; 96366; 96375; 97163; 97167; 99291

== ENCOUNTER → 2023-12-05 09:51 | Outpatient (REF) | payer MEDICARE, OTHER, SELFPAY ==
[2023-12-05 13:29] LABS: % Basophils 0.5 % (0-2); % Eosinophils 4.6 % (0-6); % Immature Granulocytes 0.4 % (0-0.5); % Lymphocytes 16.5 % (20.5-51.1); % Monocytes 9.5 % (1.7-9.3); % Neutrophils 68.5 % (42.2-75.2); Absolute Eosinophils 0.4 10^3/uL (0-0.7); Absolute Lymphocytes 1.4 10^3/uL (1.2-3.4); Absolute Monocytes 0.8 10^3/uL (0.1-0.6); Absolute Neutrophils 5.7 10^3/uL (1.4-6.5); Hematocrit 23.5 % (39.0-52.0); Hemoglobin 7.2 g/dL (13.0-18.0); Mean Corp Hgb Conc. 30.6 g/dL (33.0-37.0); Mean Corpuscular Hgb 23.8 pg (27.0-31.0); Mean Corpuscular Volume 77.6 fL (80.0-94.0); Mean Platelet Volume 10.3 fL (7.4-10.4); Nucleated Red Blood Cells % 0 % (-); Platelet Count 213 10^3/uL (130-400); Red Blood Cell Count 3.03 10^6/uL (4.70-6.10); Red Cell Dist. Width 16.6 % (11.5-14.5); White Blood Cell Count 8.3 10^3/uL (4.8-10.8)
[2023-12-05 13:42] LABS: ALT (SGPT) 12 U/L (0-50); AST (SGOT) 14 U/L (17-59); Albumin 3.3 g/dl (3.5-5.0); Alkaline Phosphatase 91 U/L (38-126); Blood Urea Nitrogen 21 mg/dl (9-20); Calcium 8.7 mg/dl (8.4-10.2); Carbon Dioxide 25 mmol/L (22-30); Chloride 108 mmol/L (98-107); Glucose 83 mg/dl (70-99); Magnesium 2.1 mg/dl (1.6-2.3); Potassium 4.1 mmol/L (3.5-5.1); Sodium 137 mmol/L (135-145); Total Bilirubin 0.1 mg/dl (0.2-1.3); Total Protein 5.6 g/dl (6.3-8.2); eGFR 35.02
[2023-12-05 13:55] LABS: Vitamin D, 25-OH*** 17.4 ng/mL (30-80)
[2023-12-05 14:28] LABS: Vitamin B12 435 pg/ml (239-931)
[2023-12-08 10:19] LABS: Vitamin B6 Results 7.5 nmol/L (20.0-125.0)
== END ==
LOC: OLABN 09:51
PROVIDERS: ATTENDING PHYSICIAN Student in an Organized Health Care Education/Training Program
DX: R53.83 Other fatigue (principal); R53.81 Other malaise; G30.9 Alzheimer's disease, unspecified; E11.21 Type 2 diabetes mellitus with diabetic nephropathy; E55.9 Vitamin D deficiency, unspecified; E53.1 Pyridoxine deficiency
CPT/HCPCS: 36415; 80053; 82306; 82607; 83735; 84207; 85025

== ENCOUNTER → 2024-01-14 13:28 | Outpatient (REF) | payer MEDICARE, OTHER, SELFPAY | LOC: OLABN 13:28 | PROVIDERS: ATTENDING PHYSICIAN Student in an Organized Health Care Education/Training Program | DX: E53.1 Pyridoxine deficiency (principal) | CPT/HCPCS: 36415; 84207 ==

== ENCOUNTER → 2024-06-02 09:50 | Outpatient (REF) | payer MEDICARE, OTHER, SELFPAY ==
[2024-06-02 12:18] LABS: HDL Cholesterol 36 mg/dl; LDL Cholesterol, Calculated 51 mg/dl; Total Cholesterol 98 mg/dl (50-199); Triglyceride 58 mg/dl (10-149); Very Low Density Lipoprotein 11 mg/dl (0-30)
== END ==
LOC: OLABN 09:50
PROVIDERS: ATTENDING PHYSICIAN Student in an Organized Health Care Education/Training Program
DX: E78.5 Hyperlipidemia, unspecified (principal)
CPT/HCPCS: 36415; 80061

== ENCOUNTER → 2024-08-12 10:47 | Outpatient (REF) | payer MEDICARE, OTHER, SELFPAY ==
[2024-08-12 12:05] LABS: Vitamin D, 25-OH*** < 12.8 ng/mL (30-80)
[2024-08-12 12:19] LABS: TSH 2.84 uIU/ml (0.47-4.68)
[2024-08-12 12:38] LABS: Glycohemoglobin (HgbA1c) 6.3 % (4.0-5.6)
[2024-08-12 13:06] LABS: Blood Urea Nitrogen 31 mg/dl (9-20); Calcium 8.4 mg/dl (8.4-10.2); Carbon Dioxide 22 mmol/L (22-30); Chloride 108 mmol/L (98-107); Potassium 4.3 mmol/L (3.5-5.1); Sodium 141 mmol/L (135-145)
[2024-08-12 13:34] LABS: Glucose 48 mg/dl (70-99)
== END ==
LOC: OLABN 10:47
PROVIDERS: ATTENDING PHYSICIAN Student in an Organized Health Care Education/Training Program
DX: E87.6 Hypokalemia (principal); E11.21 Type 2 diabetes mellitus with diabetic nephropathy; E03.9 Hypothyroidism, unspecified; E55.9 Vitamin D deficiency, unspecified
CPT/HCPCS: 36415; 80048; 82306; 83036; 84443

== ENCOUNTER 2025-01-22 18:40 | Inpatient (IN) | payer MEDICARE, OTHER, SELFPAY ==
[2025-01-22] VITALS (12 sets, daily range): BP systolic 124–164; BP diastolic 44–81; BMI 25.3
[2025-01-22 15:58] LABS: Hematocrit 18.4 % (39.0-52.0); Hemoglobin 5.5 g/dL (13.0-18.0); Mean Corp Hgb Conc. 29.9 g/dL (33.0-37.0); Mean Corpuscular Volume 78.6 fL (80.0-94.0); Nucleated Red Blood Cells % 0 % (-); Platelet Count 139 10^3/uL (130-400); Red Cell Dist. Width 16.7 % (11.5-14.5)
[2025-01-22 16:07] LABS: ALT (SGPT) 10 U/L (0-50); AST (SGOT) 11 U/L (17-59); Albumin 3.7 g/dl (3.5-5.0); Alkaline Phosphatase 82 U/L (38-126); Blood Urea Nitrogen 48 mg/dl (9-20); Calcium 8.4 mg/dl (8.4-10.2); Carbon Dioxide 22 mmol/L (22-30); Chloride 112 mmol/L (98-107); Glucose 159 mg/dl (70-99); Potassium 5.2 mmol/L (3.5-5.1); Sodium 140 mmol/L (135-145); Total Protein 6.2 g/dl (6.3-8.2); eGFR 24.28
--- NOTE | 2025-01-22 16:14 | ED.GENMED ---
History of Present Illness
General
Chief Complaint: Abnormal Lab Value
Source: patient
Exam Limitations: none
Time Seen by Provider: 01/22/25 15:38
Nursing documentation reviewed up to this point in time: agreed with
History of Present Illness
History of Present Illness:
74-year-old male with extensive medical history as noted significant for dementia, COPD, CAD, PVD, CKD, chronic anemia who presents to the emergency room from [facility] for evaluation of anemia noted on outpatient labs. Patient
labs drawn earlier today and alf notes that hemoglobin was 5.1 and so he was referred to the ER for further assessment. No reported GI bleeding or any other acute issues. Patient is a limited historian due to his dementia. He cannot even
tell me why he is in the emergency room although he does answer questions. He says that he feels generally well although admits to feeling very weak and mildly short of breath. I spoke to his on the phone and she says that he has a history of
issues with anemia in the past requiring transfusion.
Past History
Past History
ED Past Medical History: CAD, HTN, Hypercholesterolemia, IDDM, PR, Renal failure, Seizures and Other (Dementia, urosepsis June 2022)
ED Past Surgical History: Cardiac (Stents X 3)
Social History
Tobacco: Former smoker
Alcohol: Occasional
Drug: None
Personal: Other
Living: alf
Employment: Other (imprisoned)
Family History
Family History: Unable to obtain
Review of Systems
Review of Systems
Unable to obtain full review of systems at this time due to: dementia
All Other Systems: Not applicable
Phy Exam
Physical Exam
Physical Exam:
General: Awake, alert, oriented x 1, chronically ill-appearing
Head: Normocephalic, atraumatic
Eyes: Conjunctiva normal
Throat: Airway intact, handling secretions
Neck: Trachea midline
Lungs: Clear to auscultation bilaterally, no wheezing, rales, rhonchi
Heart: Regular rate
Abd: Soft, mildly distended, nontender
Rectal: Brown stool Hemoccult negative
Neuro: Contracted in lower extremities
Skin: Somewhat pale
Extremities: Warm and generally well-perfused
Scores
Heart Failure Risk
Heart Failure Risk Score: Not Applicable
Heart Score for Chest Pain Patients
STEMI patient?: Not applicable
Withdrawal Assessment of Alcohol
Withdrawal Assessment Completed?: Not applicable
Course
Orders/Labs/Results
Orders:
Orders
01/22/25 15:39
Type And Crossmatch [Type+Screen] Urgent
CBC/With Diff [Complete Blood Count/With Diff] Urgent
CMP [Comprehensive Metabolic Panel] Urgent
01/22/25 16:04
Blood Bank Products [* Blood Bank Products] Urgent
Blood Bank Products: *Packed RBC Leuko(PRBC's)
Quantity: 2
Transfuse Today: Yes
Reason: Anemia
01/22/25 16:11
B12 [Vitamin B12] Urgent
Ferritin Urgent
Folate Urgent
Iron Urgent
Total Iron Binding Urgent
Abnormal Lab Results
01/22/25
15:39
RBC 2.34 L 10^6/uL
(4.70-6.10)
Hgb 5.5 L* g/dL
(13.0-18.0)
Hct 18.4 L* %
(39.0-52.0)
MCV 78.6 L fL
(80.0-94.0)
MCH 23.5 L pg
(27.0-31.0)
MCHC 29.9 L g/dL
(33.0-37.0)
RDW 16.7 H %
(11.5-14.5)
Absolute Monos (auto) 0.7 H 10^3/uL
(0.1-0.6)
Monocytes % 11.6 H %
(1.7-9.3)
Potassium 5.2 H mmol/L
(3.5-5.1)
Chloride 112 H mmol/L
(98-107)
BUN 48 H mg/dl
(9-20)
Creatinine 2.7 H mg/dL
(0.7-1.3)
Glucose 159 H mg/dl
(70-99)
AST 11 L U/L
(17-59)
Total Protein 6.2 L g/dl
(6.3-8.2)
01/22/25 15:39
01/22/25 15:39
Vital Signs
Initial and Last Documented VS:
Initial Vital Signs
Pulse Resp BP Pulse Ox
50 14 126/48 98
01/22/25 15:36 01/22/25 15:36 01/22/25 15:36 01/22/25 15:36
Last Documented Vital Signs
Pulse Resp BP Pulse Ox
50 14 126/48 98
01/22/25 15:36 01/22/25 15:36 01/22/25 15:36 01/22/25 16:14
MDM/Problems Addressed
Differential Diagnosis Includes:
Anemia�blood loss versus iron deficiency/nutritional deficiency versus anemia of chronic disease, etc
MDM/Problems Addressed:
74-year-old male presents for evaluation of acute on chronic anemia noted on outpatient labs. Hemoglobin 5.1 earlier today. He is hemodynamically stable. No reported GI bleeding and stool here is brown and heme-negative. Repeat labs sent today
including CBC and a CMP, type and screen�hemoglobin confirmed low 5.5 prior baseline between 7 and 8. CMP shows CKD which is stable. Marginal hyperkalemia. Added iron studies, folate/B12. Will transfuse 2 units of PRBCs. Admit for continued
evaluation and treatment of acute on chronic anemia. Discussed case with hospitalist.
Chronic conditions affecting care:
CKD, chronic anemia
*Pulse Oximetry
SaO2: 98
Oxygen Mode of Delivery: Room air
Patient hypoxic: no (98%)
*Critical Care Note
Total Time (30-74mins, 75-104mins- exclusive of procedures): Not Applicable
Data Reviewed
Review of Other/Old Records Reveals: Labs and Records
Source: patient, spouse, ambulance crew and alf records
Patient Management
Discussion with other providers: Hospitalist (Discussed with hospitalist)
Escalation/DeEscalation of care consider admission/obs:
Admission indicated
ED Attending Note
-
Portions of this chart may have been created with voice recognition software.� Occasional wrong word or��sound alike� substitutions may have occurred due to the inherent limitations of voice recognition software.
Discharge Plan
Departure
Patient Disposition: Admit
Date of Disposition: 01/22/25
Time of Disposition: 16:12
Admit to doctor: Miguel
Presentation/result/management discussed w/ accepting MD/DO: Hospitalist
Discharge Problem:
Acute on chronic anemia
Prescriptions:
No Action
lisinopril 10 MG tablet
20 mg PO DAILY
aspirin 81 MG tablet,chewable
81 mg PO DAILY
amlodipine 10 MG tablet
10 mg PO DAILY 0RF
acetaminophen [Tylenol] 325 mg Tablet
650 mg PO Q4HPRN PRN (Reason: mild pain/fever>100.4)
hydralazine 25 mg Tablet
25 mg PO BID
bisacodyl 10 mg Suppository
10 mg [place] DAILYPRN PRN (Reason: if mom ineffective)
lactulose 10 gram/15 mL Solution
20 g PO HSPRN PRN (Reason: lack of bm)
potassium chloride 20 mEq Tablet Extended Release
20 meq PO DAILY
levetiracetam [Keppra] 500 mg Tablet
500 mg PO DAILY
simvastatin [Zocor] 20 mg Tablet
20 mg PO HS
gabapentin 100 mg Capsule
100 mg PO BID
insulin glargine [Basaglar KwikPen U-100 Insulin] 100 unit/mL (3 mL) Insulin Pen
8 unit SC HS
tamsulosin 0.4 MG capsule
0.4 mg PO QPM
Novolin N NPH U-100 Insulin 100 unit/mL Suspension
6 unit SC QPM
Novolin N NPH U-100 Insulin 100 unit/mL Suspension
10 unit SC DAILY
levetiracetam [Keppra] 750 mg tablet
750 mg PO HS
clonazepam 0.125 mg tablet,disintegrating
0.25 mg PO HS Qty: 6 0RF
memantine [Namenda] 10 mg Tablet
10 mg PO BID
escitalopram oxalate [Lexapro] 5 mg Tablet
5 mg PO DAILY
cholecalciferol (vitamin D3) [Vitamin D3] 25 mcg (1,000 unit) Tablet
25 mcg PO DAILY
Interventions
Interventions:
*Risk Screen - Suicide Last Done: 01/22/25 15:36
*General Assessment Last Done: 01/22/25 15:36
*Neglect/Abuse Screening Last Done: 01/22/25 15:36
*ED COVID-19 Vaccine History Last Done: 01/22/25 15:36
Discharge Date and Time
Print Language: ETHIOPIAN
--- NOTE | 2025-01-22 16:30 | HPS.HSE ---
Family Physician
-
Family Physician: Louie Darden DO
Chief Complaint
-
abnormal outpatient labs
History of Present Illness
Patient is a 74-year-old male with past medical history significant for senile dementia with behavioral disturbance, DM-II, hypertension, hyperlipidemia, CKD III, iron deficiency anemia, BPH and CAD who presented to [facility] ED for evaluation of
abnormal outpatient labs. Patient resides at [facility] with routine labs drawn this morning resulting in hgb 5.1. Patient poor historian and is pleasantly confused with assessment. Patient denies any acute symptoms at this time.
Medical History
Past Medical History
Past Medical History: Reports Other
Additional Past Medical History:
senile dementia with behavioral disturbance
DM-II with neuropathy and nephropathy
hypertension
hyperlipidemia
JAMILAH
CKD III
iron deficiency anemia
BPH
CAD
Hx bladder cancer
Hx prostate cancer
Past Surgical History: Reports Other
Additional Past Surgical History:
PTCA with Stents
TURBT
Rhinoplasty
Social History
Unable to obtain full social history at this time due to: Dementia
Family History
Family History: Unable to Obtain
Allergies / Home Medications
Allergies reflects when Allergies were last updated in [employer].
Home Medications with original date entered in [employer]Snap
Allergy/Medication List:
Allergies
Allergy/AdvReac Type Severity Reaction Status Date / Time
Penicillins Allergy Unknown Verified 10/28/23 23:03
Home Medications
lisinopril 10 mg tablet 20 mg PO DAILY Blood pressure 02/12/20
aspirin 81 mg chewable tablet 81 mg PO DAILY Blood clot prevention/tx 02/23/20
amlodipine 10 mg tablet 10 mg PO DAILY 02/27/20
acetaminophen 325 mg tablet (Tylenol) 650 mg PO Q4HPRN PRN mild pain/fever>100.4 07/02/22
bisacodyl 10 mg rectal suppository 10 mg [place] DAILYPRN PRN if mom ineffective 07/02/22
gabapentin 100 mg capsule 100 mg PO BID mild Pain 07/02/22
hydralazine 25 mg tablet 25 mg PO BID Blood Pressure 07/02/22
insulin glargine 100 unit/mL (3 mL) subcutaneous pen (Basaglar KwikPen U-100 Insulin) 8 unit SC HS Diabetes 07/02/22
lactulose 10 gram/15 mL oral solution 20 g PO HSPRN PRN lack of bm 07/02/22
levetiracetam 500 mg tablet (Keppra) 500 mg PO DAILY Mental Health/Anxiety 07/02/22
potassium chloride 20 mEq tablet,extended release 20 meq PO DAILY Electrolyte Repletion 07/02/22
simvastatin 20 mg tablet (Zocor) 20 mg PO HS High Cholesterol 07/02/22
tamsulosin 0.4 mg capsule 0.4 mg PO QPM Urinary Issue 07/02/22
insulin NPH isoph U-100 human 100 unit/mL subcutaneous suspension (Novolin N NPH U-100 Insulin isophane) 6 unit SC QPM Diabetes 11/28/22
insulin NPH isoph U-100 human 100 unit/mL subcutaneous suspension (Novolin N NPH U-100 Insulin isophane) 10 unit SC DAILY Diabetes 11/28/22
levetiracetam 750 mg tablet (Keppra) 750 mg PO HS Mental Health/Anxiety 10/29/23
clonazepam 0.125 mg disintegrating tablet 0.25 mg (2 x 0.125 mg) PO HS Mental Health/Anxiety #6 tabs 10/31/23
cholecalciferol (vitamin D3) 25 mcg (1,000 unit) tablet (Vitamin D3) 25 mcg PO DAILY 01/22/25
escitalopram oxalate 5 mg tablet (Lexapro) 5 mg PO DAILY 01/22/25
memantine 10 mg tablet 10 mg PO BID 01/22/25
Review of Systems
-
Unable to obtain full review of systems at this time due to: Dementia
Physical Exam
Vital Signs
Vital Signs
Temp Pulse Resp BP Pulse Ox
98.2 F 52 14 126/65 100
01/22/25 16:24 01/22/25 16:15 01/22/25 16:15 01/22/25 16:00 01/22/25 16:15
Physical Exam
General: Well Developed, No Apparent Distress, Comfortable and Appears Chronically Ill
HEENT: NormoCephalic and Atraumatic
Respiratory: Clear and Non Labored Respirations; No Wheezes, Rales or Rhonchi
Cardiac: Regular Rhythm
GI: Soft, Non Tender, Non Distended and Normal Bowel Sounds
Rectal: Hem Negative (per ED assessment ) and Deferred by Provider
Genito-urinary: Deferred by me
Musculoskeletal: No Clubbing, No Cyanosis and Other (trace edema to bilateral feet )
Skin: Warm and IV/Catheter Site
Neuro: Nonfocal/grossly intact and Sedated
Psych: Apparent Dementia
Laboratory Results
-
01/22/25 15:39
01/22/25 15:39
Laboratory Results
Total Bilirubin 0.2 mg/dl (0.2-1.3) 01/22/25 15:39
AST 11 U/L (17-59) L 01/22/25 15:39
ALT 10 U/L (0-50) 01/22/25 15:39
Alkaline Phosphatase 82 U/L (38-126) 01/22/25 15:39
Data Reviewed
-
Medical Tests (Nuc Med, Echo, EKG etc): Report Reviewed by me (EKG: SINUS BRADYCARDIA LOW VOLTAGE QRS INFERIOR INFARCT (CITED ON OR BEFORE 06-Sep-2019))
Lab Data: Labs Reviewed by me (hgb 5.5, hct 18.4, K+ 5.2, BUN 48, Creat 2.7, eGFR 24.28, )
Impression/Plan
-
IMPRESSION/PLAN:
#acute on chronic anemia
#Hx iron deficiency anemia
hgb 5.5, hct 18.4
EKG: SINUS BRADYCARDIA
LOW VOLTAGE QRS
INFERIOR INFARCT (CITED ON OR BEFORE 06-Sep-2019)
Hemoccult: negative
- Admit to telemetry
- transfuse 2 units PRBCs
- iron studies pending
- blood consent obtained by ED and scanned to chart
- trend H/H
- Consider GI Consult if patient iron deficient
#senile dementia with behavioral disturbance
- continue clonazepam, escitalopram, levetiracetam and Namenda
#DM-II
- AccuCheck AC & HS
- SSI
- hold insulin glargine and NPH
- NPH 3 units BID
#neuropathy and nephropathy
- continue gabapentin
#hypertension
- continue amlodipine, hydralazine and lisinopril
#hyperlipidemia
- continue simvastatin
#JAMILAH
#CKD III
K+ 5.2, BUN 48, Creat 2.7, eGFR 24.28
- monitor BMP, appears to be baseline
#BPH
- continue tamsulosin
#CAD
- continue aspirin
#Hx bladder cancer
#Hx prostate cancer
Code status: DNR
DVT prophylaxis: SCDs
[2025-01-22 16:58] LABS: Iron 46 ug/dl (49-181)
--- NOTE | 2025-01-22 17:09 | W.PN.UPDATE ---
Addendum entered and electronically signed by Lorena Rivera MD 01/22/25 19:27:
hold Lisinopril and standing K+ given K+ 5.2 on admission labs
Addendum entered and electronically signed by Lorena Rivera MD 01/22/25 19:05:
Updated , ferritin low, patient with DOMINIQUE. This has been worked up extensively in past. HE had EGD and colonoscopy in 2018. reported that patient had a very large polyp requiring multiple follow ups and they removed it but he remained
anemic. He came off blood thinner at that time.
GI consulted to discuss risk/benefit of repeat scope.
Original Note:
Update Note
Progress Note Update
This is an addendum to H&P written by FRONT DESK AUXILIARY Asuncion Vora
I saw and examined the patient.
The FRONT DESK AUXILIARY's note was reviewed and I agree with the note.
Comment:
Mr. Sylvester Kothari is a 74 yo man with hx dementia, COPD, CAD, CKD who presents from [place] for evaluation fo outpatient labs. Labs drawn at [place] showed Hg 5.1. He had no reported GI bleeding. Patient is confused at baseline.
Triage VS: P 50, RR 14, BP 126/48, SpO2 98%
LABS: Na 140, K+ 5.2, Cl 112, BUN 48, Cr 2.7, Glucose 159, T. Bili 0.2, AST 11, ALT 10, Alk PHos 82
Acute on Chronic Anemia
Hx DOMINIQUE
-no e/o hans bleeding
-ordered for 2 units PRBC in the ER
-admit to telemetry
-trend Hg
-follow up iron studies, if DOMINIQUE CAN consult GI to discuss options of endoscopy
-IV Protonix
-NPO after MN in case scope indicated
IDDM
-lower insulin dosing while in-house, NPO
Remainder of plan per FRONT DESK AUXILIARY note
DVT PPx SCD
DNR
[2025-01-22 17:51] LABS: Ferritin 7.6 ng/ml (17.9-464.0)
[2025-01-22 18:23] LABS: Folate 5.0 ng/ml (2.76-20); Vitamin B12 252 pg/ml (239-931)
[2025-01-22 19:35] LABS: Total Iron Binding Capacity 348 ug/dl (261-462)
--- NOTE | 2025-01-22 20:15 | PTCARENOTE ---
Pt received from ED via stretcher at 1945/ Pt pleasant, slightly confused, AAox2, and pulled into bed from stretcher. Pt absent of pain at this time. Pt receptive to room and call frias. Pt bed in lowest position and call frias within reach. Pt
educated on importance of call frias usage, pt relays understanding and cooperation. Will continue with current plan of care.
[2025-01-22] MEDS: PROTONIX IV 40 MG IV (20:18)
[2025-01-22] MEDS: APRESOLINE 25 MG PO (23:06)
[2025-01-22] MEDS: NEURONTIN 100 MG PO (23:07)
[2025-01-22] MEDS: FLOMAX 0.4 MG PO (23:07)
[2025-01-22] MEDS: LIPITOR 10 MG PO (23:07)
[2025-01-22] MEDS: NAMENDA 10 MG PO (23:07)
[2025-01-22] MEDS: KEPPRA 750 MG PO (23:10)
[2025-01-22] MEDS: KLONOPIN 0.25 MG PO (23:10)
[2025-01-23] VITALS (7 sets, daily range): BP systolic 119–152; BP diastolic 49–71
[2025-01-23 00:06] LABS: Hematocrit 19.7 % (39.0-52.0); Hemoglobin 6.1 g/dL (13.0-18.0)
--- NOTE | 2025-01-23 00:08 | PTCARENOTE ---
Pt cam back with critical lab of Hgb 6.1 and Hct 19.7, CHERY York notified at 0008. PRBC already ordered and to be transfused.
[2025-01-23 05:44] LABS: Glucose - Point of Care 97 mg/dl (70-99)
[2025-01-23 07:23] LABS: Hematocrit 23.9 % (39.0-52.0); Hemoglobin 7.6 g/dL (13.0-18.0); Mean Corp Hgb Conc. 31.8 g/dL (33.0-37.0); Mean Corpuscular Volume 81.0 fL (80.0-94.0); Platelet Count 134 10^3/uL (130-400); Red Cell Dist. Width 16.4 % (11.5-14.5)
[2025-01-23 07:36] LABS: Blood Urea Nitrogen 40 mg/dl (9-20); Calcium 8.4 mg/dl (8.4-10.2); Carbon Dioxide 21 mmol/L (22-30); Chloride 114 mmol/L (98-107); Estimated Creatinine Clearance 23 ml/min; Glucose 85 mg/dl (70-99); Potassium 4.5 mmol/L (3.5-5.1); Sodium 141 mmol/L (135-145); eGFR 25.41
--- NOTE | 2025-01-23 08:37 | CON.GI ---
Consultation
-
Date/Time Consultation Requested: 01/22/2026; 22:08
Date/Time Consultation Performed: 01/23/2025; 09:00
Requesting Provider: Lorena Rivera MD
Performing Provider: Radha Rosario MD; Дмитрий Kelley MD
Reason for Consultation: acute on chronic anemia
Medical History
Chief Complaint / HPI
Chief Complaint: acute on chronic anemia
History of Present Illness:
74 yo M PMH senile dementia with behavioral disturbance, DM-II, hypertension, hyperlipidemia, CKD III, iron deficiency anemia, BPH and CAD p/w low hemoglobin found on labs (5.1; baseline appears around 7-8).
Patient is a poor historian (AOx1 to me), but he reports fatigue, some dyspnea, and some lightheadedness over the past few weeks.
He last PO intake was 2-3 days ago. He denies nausea/vomiting/hematemesis. He denies any blood in stool or on toilet paper. he denies abdominal pain. He denies any reflux symptoms
He denies chest pain, headaches, dysuria.
Past Medical History
Past Medical History: Other (senile dementia with behavioral disturbance; DM-II with neuropathy and nephropathy; hypertension; hyperlipidemia; JAMILAH; CKD III; iron deficiency anemia; BPH; CAD; Hx bladder cancer; Hx prostate cancer)
Past Surgical History: Other (PTCA with Stents; TURBT; Rhinoplasty)
Social History
Alcohol: Occasional
Drug: None
Living: Skilled Nursing
Allergies / Home Medications
Allergy/AdvReac Type Severity Reaction Status Date / Time
Penicillins Allergy Unknown Verified 10/28/23 23:03
�Medication �Instructions �Recorded
lisinopril 10 mg tablet 20 mg PO DAILY Blood pressure 02/12/20
aspirin 81 mg chewable tablet 81 mg PO DAILY Blood clot 02/23/20
prevention/tx
amlodipine 10 mg tablet 10 mg PO DAILY 02/27/20
acetaminophen 325 mg tablet 650 mg PO Q4HPRN PRN mild 07/02/22
(Tylenol) pain/fever>100.4
bisacodyl 10 mg rectal suppository 10 mg [place] DAILYPRN PRN if mom 07/02/22
ineffective
gabapentin 100 mg capsule 100 mg PO BID mild Pain 07/02/22
hydralazine 25 mg tablet 25 mg PO BID Blood Pressure 07/02/22
insulin glargine 100 unit/mL (3 8 unit SC HS Diabetes 07/02/22
mL) subcutaneous pen (Basaglar
KwikPen U-100 Insulin)
lactulose 10 gram/15 mL oral 20 g PO HSPRN PRN lack of bm 07/02/22
solution
levetiracetam 500 mg tablet 500 mg PO DAILY Mental 07/02/22
(Keppra) Health/Anxiety
potassium chloride 20 mEq 20 meq PO DAILY Electrolyte 07/02/22
tablet,extended release Repletion
simvastatin 20 mg tablet (Zocor) 20 mg PO HS High Cholesterol 07/02/22
tamsulosin 0.4 mg capsule 0.4 mg PO QPM Urinary Issue 07/02/22
insulin NPH isoph U-100 human 100 6 unit SC QPM Diabetes 11/28/22
unit/mL subcutaneous suspension
(Novolin N NPH U-100 Insulin
isophane)
insulin NPH isoph U-100 human 100 10 unit SC DAILY Diabetes 11/28/22
unit/mL subcutaneous suspension
(Novolin N NPH U-100 Insulin
isophane)
levetiracetam 750 mg tablet 750 mg PO HS Mental Health/Anxiety 10/29/23
(Keppra)
clonazepam 0.125 mg disintegrating 0.25 mg (2 x 0.125 mg) PO HS 10/31/23
tablet Mental Health/Anxiety #6 tabs
cholecalciferol (vitamin D3) 25 25 mcg PO DAILY Supplement 01/22/25
mcg (1,000 unit) tablet (Vitamin
D3)
escitalopram oxalate 5 mg tablet 5 mg PO DAILY Mental Health/Anxiety 01/22/25
(Lexapro)
memantine 10 mg tablet 10 mg PO BID Neurological Condition 01/22/25
Review of Systems
-
Unable to obtain full review of systems at this time due to: Other (limited ROS)
History Source: Patient
Constitutional: Reports No Symptoms
EENT: Reports No Symptoms
Respiratory: Reports Other (some dyspnea )
Cardiac: Reports Other (some lightheadedness but no syncope)
Abdomen/GI: Reports No Symptoms and Other (no hematemesis, no blood in stool)
: Reports No Symptoms
Musculoskeletal: Reports No Symptoms
Skin: Reports No Symptoms
Neurological: Reports No Symptoms
Endocrine: Reports No Symptoms
Hematologic/Lymphatic: Reports No Symptoms
Vital Signs
Temp Pulse Resp BP Pulse Ox
97.5 F 68 16 152/71 99
01/23/25 07:30 01/23/25 07:30 01/23/25 07:30 01/23/25 07:30 01/23/25 07:30
Physical Exam
Exam
General: Comfortable
HEENT: Normocephalic
Respiratory: Clear (on my exam)
Cardiac: Other (no murmurs on my exam)
GI: Soft, Non Tender, Non Distended and Normal Bowel Sounds
Musculoskeletal: No Edema
Skin: Warm
Neuro: Awake, Alert and Other (AOx1; able to move 4 extremities)
Psych: Calm
Results
WBC 7.0 10^3/uL (4.8-10.8) 01/23/25 06:40
Hgb Cancelled 01/23/25 10:08
Hct Cancelled 01/23/25 10:08
MCV 81.0 fL (80.0-94.0) 01/23/25 06:40
Plt Count 134 10^3/uL (130-400) 01/23/25 06:40
Absolute Neuts (auto) 3.8 10^3/uL (1.4-6.5) 01/22/25 15:39
Sodium 141 mmol/L (135-145) 01/23/25 06:40
Potassium 4.5 mmol/L (3.5-5.1) 01/23/25 06:40
Chloride 114 mmol/L (98-107) H 01/23/25 06:40
Carbon Dioxide 21 mmol/L (22-30) L 01/23/25 06:40
BUN 40 mg/dl (9-20) H 01/23/25 06:40
Creatinine 2.6 mg/dL (0.7-1.3) H 01/23/25 06:40
Calcium 8.4 mg/dl (8.4-10.2) 01/23/25 06:40
Total Bilirubin 0.2 mg/dl (0.2-1.3) 01/22/25 15:39
AST 11 U/L (17-59) L 01/22/25 15:39
ALT 10 U/L (0-50) 01/22/25 15:39
Alkaline Phosphatase 82 U/L (38-126) 01/22/25 15:39
Hgb trend over 01/22 to 01/23
5.1 -> 5.5 -> 1x-pRBC -> 6.1 -> 1x-pRBC -> 7.6
Iron: 46
TIB: 348
%Saturation: 13
Ferritin: 7.6
Vitamin B12: 252
Folate 5.0
Prior GI Procedures:
Per documentation: 'EGD and colonoscopy in 2018. reported that patient had a very large polyp requiring multiple follow ups and they removed it but he remained anemic.'
Assessment / Plan
-
In summary, 74 yo M PMH senile dementia with behavioral disturbance, DM-II, hypertension, hyperlipidemia, CKD III, iron deficiency anemia, BPH and CAD p/w acute on chronic anemia, iron deficiency anemia.
# Acute on chronic anemia
# Iron deficiency anemia
- initial hemoglobin of 5.1/5.5 that has risen to 7.6 after x2 pRBC; this is an appropriate rise
- his baseline hgb appears around 7-8, which indicates acute on chronic anemia
- the current presentation is concerning for possible GI bleed (although hemeoccult negative on ED documentation; and no evidence of bleeding per nursing report/documentation review).
- the ddx for GI bleed could include malignancy, angioectasia, hemorrhoids, peptic ulcer disease, diverticular bleed
- reassuringly, he is hemodynamically stable.
- iron studies are consistent with iron deficiency anemia.
- B12 and folate are within normal limits, but lower range
- Per documentation, his last colonoscopy was in ~2018 where a polyp was removed.
- it is possible that a malignancy has developed; he is 74 and age is within screening guidelines.
Plan:
- trend hemoglobin
- continue pantoprazole IV
- consider IV iron (ferritin 7.6)
- Consider colonoscopy given iron deficiency anemia and last colonoscopy 7 years ago
- Recommendations are not final until discussed with Dr. Rosario, GI attg
-
-
Thank you for consultation and allowing me to participate in the patient's care. Please call the secondary spanish teacher GI physician during the after hours with any questions or concerns.
[2025-01-23] MEDS: NOVOLOG FLEXPEN-LOW RESISTANCE SC ×3 (09:19→17:57)
[2025-01-23] MEDS: LEXAPRO 5 MG PO (09:27)
[2025-01-23] MEDS: APRESOLINE 25 MG PO ×2 (09:27→21:25)
[2025-01-23] MEDS: NAMENDA 10 MG PO ×2 (09:27→21:11)
[2025-01-23] MEDS: KEPPRA 500 MG PO (09:27)
[2025-01-23] MEDS: NEURONTIN 100 MG PO ×2 (09:27→21:11)
[2025-01-23] MEDS: NORVASC 10 MG PO (09:27)
[2025-01-23] MEDS: LOW STRENGTH ASPIRIN 81 MG PO (09:27)
[2025-01-23] MEDS: PROTONIX IV 40 MG IV (09:28)
[2025-01-23 12:00] LABS: Hematocrit 23.1 % (39.0-52.0); Hemoglobin 7.5 g/dL (13.0-18.0)
[2025-01-23] MEDS: HUMULIN N KWIKPEN SC (14:17)
--- NOTE | 2025-01-23 14:49 | CM ---
Alert forgetful . Pt lives at [facility] with bed hold. Spoke with Fernie at [facility] . Pt is wheelchair bound as per .
Pt and request return to [facility] [place]Pt [place] need [place].
Pharmacy: [facility]
PCP Dr Darden
PLAN Return to [facility] [place].
--- NOTE | 2025-01-23 14:52 | W.PN.HOSP.TC ---
Today's Communication/Plan
-
monitor hgb
PPI
CT imaging
GI on board
Assessment / Plan
Assessment / Plan
#acute on chronic anemia
#Hx iron deficiency anemia
transfused 2u prbc
-CT imaging
-GI consulted
-Holding off on invasive procedures until cleared by POA - i anticipate needing NG tube for prep if needed
- trend H/H
-PPI
#senile dementia with behavioral disturbance
- continue clonazepam, escitalopram, levetiracetam and Namenda
#DM-II
- AccuCheck AC & HS
- SSI
- hold insulin glargine and NPH
- NPH 3 units BID
#neuropathy and nephropathy
- continue gabapentin
#hypertension
- continue amlodipine, hydralazine and lisinopril
#hyperlipidemia
- continue simvastatin
#JAMILAH
#CKD III
K+ 5.2, BUN 48, Creat 2.7, eGFR 24.28
- monitor BMP, appears to be baseline
#BPH
- continue tamsulosin
#CAD
- continue aspirin
#Hx bladder cancer
#Hx prostate cancer
Code status: DNR
DVT prophylaxis: SCDs
Anticipated Discharge: > 48 hours
Subjective/Interval History
-
Date of Service: January 23, 2025
No acute events overnight
Objective Data
-
Labs:
Laboratory Results
01/23/25 01/23/25 01/23/25
04:08 06:40 10:08
WBC 7.0
Hgb Cancelled 7.6 L D Cancelled
Hct Cancelled 23.9 L Cancelled
Plt Count 134
Sodium 141
Potassium 4.5
Chloride 114 H
Carbon Dioxide 21 L
BUN 40 H
Creatinine 2.6 H
Glucose 85
Calcium 8.4
01/23/25
11:29
WBC
Hgb 7.5 L
Hct 23.1 L
Plt Count
Sodium
Potassium
Chloride
Carbon Dioxide
BUN
Creatinine
Glucose
Calcium
Vital Signs:
Vital Signs
Temp Pulse Resp BP Pulse Ox
97.5 F 68 16 152/71 99
01/23/25 07:30 01/23/25 07:30 01/23/25 07:30 01/23/25 07:30 01/23/25 07:30
I&O
01/22/25 01/23/25 01/24/25
06:59 06:59 06:59
Intake Total 750 / 750 240 / 240
Balance 750 / 750 240 / 240
Review of Systems
-
History Source: Patient
All other systems: Not reviewed unless documented
Data Reviewed
-
Total Time Spent with Patient (in minutes): 41
Labs: Labs Reviewed by me
[2025-01-23 15:55] LABS: Glucose - Point of Care 102 mg/dl (70-99)
[2025-01-23] MEDS: FLOMAX 0.4 MG PO (17:58)
[2025-01-23] MEDS: HUMULIN N KWIKPEN 3 UNITS SC (17:58)
[2025-01-23] MEDS: KEPPRA 750 MG PO (21:11)
[2025-01-23] MEDS: KLONOPIN 0.25 MG PO (21:11)
[2025-01-23] MEDS: MIRALAX 17 GRAMS PO (21:11)
[2025-01-23] MEDS: LIPITOR 10 MG PO (21:21)
[2025-01-23 21:43] LABS: Glucose - Point of Care 138 mg/dl (70-99)
[2025-01-24 08:00] VITALS: BP 132/57
[2025-01-24] MEDS: APRESOLINE 25 MG PO ×2 (08:30→20:32)
[2025-01-24] MEDS: KEPPRA 500 MG PO (08:30)
[2025-01-24] MEDS: NAMENDA 10 MG PO ×2 (08:30→20:32)
[2025-01-24] MEDS: NSS (PRESERVATIVE FREE) 10 ML IV (08:31)
[2025-01-24] MEDS: NEURONTIN 100 MG PO ×2 (08:31→20:31)
[2025-01-24] MEDS: MIRALAX 17 GRAMS PO ×2 (08:31→20:32)
[2025-01-24] MEDS: NORVASC 10 MG PO (08:31)
[2025-01-24] MEDS: LOW STRENGTH ASPIRIN 81 MG PO (08:31)
[2025-01-24] MEDS: LEXAPRO 5 MG PO (08:31)
[2025-01-24] MEDS: PROTONIX IV 40 MG IV (08:31)
[2025-01-24 08:33] LABS: Glucose - Point of Care 84 mg/dl (70-99)
[2025-01-24] MEDS: HUMULIN N KWIKPEN 3 UNITS SC ×2 (08:52→17:33)
[2025-01-24] MEDS: NOVOLOG FLEXPEN-LOW RESISTANCE SC ×2 (08:53→16:34)
[2025-01-24 09:08] LABS: Hematocrit 24.5 % (39.0-52.0); Hemoglobin 7.7 g/dL (13.0-18.0); Mean Corp Hgb Conc. 31.4 g/dL (33.0-37.0); Mean Corpuscular Volume 80.6 fL (80.0-94.0); Platelet Count 146 10^3/uL (130-400); Red Cell Dist. Width 16.0 % (11.5-14.5)
[2025-01-24 10:06] LABS: ALT (SGPT) < 10 U/L (0-50); AST (SGOT) 10 U/L (17-59); Albumin 3.5 g/dl (3.5-5.0); Alkaline Phosphatase 86 U/L (38-126); Blood Urea Nitrogen 38 mg/dl (9-20); Calcium 8.7 mg/dl (8.4-10.2); Carbon Dioxide 22 mmol/L (22-30); Chloride 113 mmol/L (98-107); Estimated Creatinine Clearance 24 ml/min; Glucose 77 mg/dl (70-99); Potassium 4.5 mmol/L (3.5-5.1); Sodium 142 mmol/L (135-145); Total Protein 6.0 g/dl (6.3-8.2); eGFR 26.63
--- NOTE | 2025-01-24 11:50 | W.PN.GI.CBS2 ---
Today's Communication / Plan
-
Iron infusion
Miralax bid
trend HB
Assessment / Plan
-
In summary, 74 yo M PMH senile dementia with behavioral disturbance, DM-II, hypertension, hyperlipidemia, CKD III, iron deficiency anemia, BPH and CAD p/w acute on chronic anemia, iron deficiency anemia.
Assessment and plan. severe iron deficiency anemia from chronic GI blood loss from possible angioectasias versus malignancy less likely from PUD he is currently asymptomatic. patient has prior history of large colon polyps requiring complex
polypectomy with a few colonoscopies last being in 2018 or 2018 at [facility] unfortunately has not been able to follow-up since then because of his dementia and other multiple comorbidities and in [place] since 2020. I discussed at length with his 01/23
and she would like to hold off on invasive procedures for now unless he has any active bleeding, since given his underlying dementia will be difficult to prep and may need NG placement for prep. Hemoglobin remained stable posttransfusion with no
active bleeding noted. Will start IV iron infusion. continue to monitor hemoglobin. Please call us back if family decides to proceed with endoscopy and colonoscopy. CT done without oral or IV contrast was negative for any obvious neoplasm but did
show rectal fecal impaction with probable stercoral ulcer and diverticulosis. He did have a large bowel movement with milk of molasses enema will also start him on MiraLAX twice daily
Will sign off and will be available as needed
Subjective
Subjective
Date of Service: January 24, 2025
Hemoglobin remains stable after 2 units of packed red blood cells given 01/22 and 01/23. CT showed rectal impaction and gave milk of molasses enema and he had a large brown bowel movement.
Objective
Data Reviewed
Laboratory Data:
Laboratory Results
01/24/25 08:31
01/24/25 08:31
Laboratory Results
Total Bilirubin 0.2 mg/dl (0.2-1.3) 01/24/25 08:31
AST 10 U/L (17-59) L 01/24/25 08:31
ALT < 10 U/L (0-50) 01/24/25 08:31
Alkaline Phosphatase 86 U/L (38-126) 01/24/25 08:31
01/23/2025 CT abdomen and pelvis without oral or IV contrast
IMPRESSION:
Rectal fecal impaction. Early/mild stercoral proctitis.
No evidence of bowel obstruction.
Minor diverticulosis without acute diverticulitis.
No obstructive uropathy. Renal cysts.
Low-attenuation adrenal nodules, consistent with benign adenomas.
Small pericardial effusion. Trace left pleural effusion.
Vital Signs and I&O:
Vital Signs
Temp Pulse Resp BP Pulse Ox
98.3 F 58 18 132/57 98
01/24/25 08:00 01/24/25 08:00 01/24/25 08:00 01/24/25 08:00 01/24/25 11:07
I&O
01/23/25 01/24/25 01/25/25
06:59 06:59 06:59
Intake Total 750 / 750 240 / 240
Balance 750 / 750 240 / 240
Physical Exam
Physical Exam
Cardiology: Normal Sinus Rhythm
Pulmonary: Clear
GI: Soft, Non Distended, Non Tender and Normal Bowel Sounds
[2025-01-24 12:04] LABS: Glucose - Point of Care 214 mg/dl (70-99)
[2025-01-24] MEDS: NOVOLOG FLEXPEN-LOW RESISTANCE 2 UNITS SC (12:25)
[2025-01-24] MEDS: FERRLECIT 110 MG IV (13:32)
--- NOTE | 2025-01-24 14:14 | W.PN.HOSP.TC ---
Today's Communication/Plan
-
iv iron
monitor hgb
Assessment / Plan
Assessment / Plan
#acute on chronic anemia
#Hx iron deficiency anemia
transfused 2u prbc
-CT imaging
-GI consulted
-Holding off on invasive procedures until cleared by POA - i anticipate needing NG tube for prep if needed
- trend H/H
-PPI
-IV Iron
#senile dementia with behavioral disturbance
- continue clonazepam, escitalopram, levetiracetam and Namenda
#DM-II
- AccuCheck AC & HS
- SSI
- hold insulin glargine and NPH
- NPH 3 units BID
#neuropathy and nephropathy
- continue gabapentin
#hypertension
- continue amlodipine, hydralazine and lisinopril
#hyperlipidemia
- continue simvastatin
#JAMILAH
#CKD III
K+ 5.2, BUN 48, Creat 2.7, eGFR 24.28
- monitor BMP, appears to be baseline
#BPH
- continue tamsulosin
#CAD
- continue aspirin
#Hx bladder cancer
#Hx prostate cancer
Code status: DNR
DVT prophylaxis: SCDs
Anticipated Discharge: 24 - 48 hours
Subjective/Interval History
-
Date of Service: January 24, 2025
no acute events
Objective Data
-
Labs:
Laboratory Results
01/24/25
08:31
WBC 6.8
Hgb 7.7 L
Hct 24.5 L
Plt Count 146
Sodium 142
Potassium 4.5
Chloride 113 H
Carbon Dioxide 22
BUN 38 H
Creatinine 2.5 H
Glucose 77
Calcium 8.7
Total Bilirubin 0.2
AST 10 L
ALT < 10
Alkaline Phosphatase 86
Vital Signs:
Vital Signs
Temp Pulse Resp BP Pulse Ox
98.3 F 58 18 132/57 98
01/24/25 08:00 01/24/25 08:00 01/24/25 08:00 01/24/25 08:00 01/24/25 11:07
I&O
01/23/25 01/24/25 01/25/25
06:59 06:59 06:59
Intake Total 750 / 750 240 / 240
Balance 750 / 750 240 / 240
Review of Systems
-
History Source: Patient
All other systems: Not reviewed unless documented
Data Reviewed
-
Total Time Spent with Patient (in minutes): 41
Labs: Labs Reviewed by me
[2025-01-24 16:00] VITALS: BP 134/58
[2025-01-24 16:23] LABS: Glucose - Point of Care 147 mg/dl (70-99)
[2025-01-24] MEDS: FLOMAX 0.4 MG PO (17:32)
[2025-01-24] MEDS: LIPITOR 10 MG PO (20:31)
[2025-01-24] MEDS: KLONOPIN 0.25 MG PO (20:31)
[2025-01-24] MEDS: KEPPRA 750 MG PO (20:31)
[2025-01-24 21:37] LABS: Glucose - Point of Care 223 mg/dl (70-99)
[2025-01-24 23:40] VITALS: BP 112/38
[2025-01-25 07:41] LABS: Hematocrit 23.1 % (39.0-52.0); Hemoglobin 7.6 g/dL (13.0-18.0); Mean Corp Hgb Conc. 32.9 g/dL (33.0-37.0); Mean Corpuscular Volume 78.0 fL (80.0-94.0); Platelet Count 142 10^3/uL (130-400); Red Cell Dist. Width 16.6 % (11.5-14.5)
[2025-01-25 08:07] LABS: ALT (SGPT) < 10 U/L (0-50); AST (SGOT) 10 U/L (17-59); Albumin 3.4 g/dl (3.5-5.0); Alkaline Phosphatase 80 U/L (38-126); Blood Urea Nitrogen 42 mg/dl (9-20); Calcium 8.5 mg/dl (8.4-10.2); Carbon Dioxide 23 mmol/L (22-30); Chloride 113 mmol/L (98-107); Estimated Creatinine Clearance 22 ml/min; Glucose 92 mg/dl (70-99); Potassium 4.2 mmol/L (3.5-5.1); Sodium 142 mmol/L (135-145); Total Protein 5.9 g/dl (6.3-8.2); eGFR 24.28
[2025-01-25 08:21] LABS: Glucose - Point of Care 95 mg/dl (70-99)
[2025-01-25 08:28] VITALS: BP 157/70
[2025-01-25] MEDS: NOVOLOG FLEXPEN-LOW RESISTANCE SC ×2 (08:29→11:40)
[2025-01-25] MEDS: LOW STRENGTH ASPIRIN 81 MG PO (08:34)
[2025-01-25] MEDS: NAMENDA 10 MG PO (08:34)
[2025-01-25] MEDS: KEPPRA 500 MG PO (08:34)
[2025-01-25] MEDS: LEXAPRO 5 MG PO (08:34)
[2025-01-25] MEDS: NORVASC 10 MG PO (08:34)
[2025-01-25] MEDS: APRESOLINE 25 MG PO (08:34)
[2025-01-25] MEDS: NEURONTIN 100 MG PO (08:34)
[2025-01-25] MEDS: MIRALAX 17 GRAMS PO (08:34)
[2025-01-25] MEDS: HUMULIN N KWIKPEN 3 UNITS SC ×2 (08:42→16:34)
[2025-01-25] MEDS: NSS (PRESERVATIVE FREE) 10 ML IV (08:43)
[2025-01-25] MEDS: PROTONIX IV 40 MG IV (08:44)
[2025-01-25 11:43] LABS: Glucose - Point of Care 102 mg/dl (70-99)
[2025-01-25] MEDS: FERRLECIT 110 MG IV (13:14)
--- NOTE | 2025-01-25 14:27 | W.PN.HOSP.TC ---
Addendum entered and electronically signed by Eliud Fontaine MD 01/25/25 15:46:
[id number]
Original Note:
Today's Communication/Plan
-
ppi
Trend CBC
GI, PCP outpt
Assessment / Plan
Assessment / Plan
#acute on chronic anemia
#Hx iron deficiency anemia
transfused 2u prbc
-CT imaging- no obvious neoplasm
-GI consulted
-Holding off on invasive procedures as was not cleared by POA - would anticipate needing NG tube for prep if needed
- trend H/H - stable post transfusion
-PPI
-IV Iron
-F/u CBC outpt
-after conversation with Danisha PACKER -decided to hold off on any further interventions at this time due to underlying dementia difficulty with possible prep. Agreed to follow-up with close CBC and GI outpatient
#senile dementia with behavioral disturbance
- continue clonazepam, escitalopram, levetiracetam and Namenda
#DM-II
- AccuCheck AC & HS
- SSI
- hold insulin glargine and NPH
- NPH 3 units BID
#neuropathy and nephropathy
- continue gabapentin
#hypertension
- continue amlodipine, hydralazine and lisinopril
#hyperlipidemia
- continue simvastatin
#JAMILAH
#CKD III
K+ 5.2, BUN 48, Creat 2.7, eGFR 24.28
- monitor BMP, appears to be baseline
#BPH
- continue tamsulosin
#CAD
- continue aspirin
#Hx bladder cancer
#Hx prostate cancer
Code status: DNR
DVT prophylaxis: SCDs
More than 30 minutes spent in discharge including
Final examination of the patient
Summarizing hospital stay
Instructions for continuing care to all relevant caregivers
Preparation of discharge records, prescriptions, and referral forms
Total time spent (in minutes): 36
Anticipated Discharge: Today
Subjective/Interval History
-
Date of Service: January 25, 2025
no acute events
Objective Data
-
Labs:
Laboratory Results
01/25/25
07:15
WBC 7.0
Hgb 7.6 L
Hct 23.1 L
Plt Count 142
Sodium 142
Potassium 4.2
Chloride 113 H
Carbon Dioxide 23
BUN 42 H
Creatinine 2.7 H
Glucose 92
Calcium 8.5
Total Bilirubin 0.3
AST 10 L
ALT < 10
Alkaline Phosphatase 80
Vital Signs:
Vital Signs
Temp Pulse Resp BP Pulse Ox
97.9 F 60 20 157/70 99
01/25/25 08:28 01/25/25 08:28 01/25/25 08:28 01/25/25 08:28 01/25/25 08:28
I&O
01/24/25 01/25/25 01/26/25
06:59 06:59 06:59
Intake Total 240 / 240 710 / 710
Output Total 450 / 450
Balance 240 / 240 710 / 260 -450 / -450
Review of Systems
-
History Source: Patient
All other systems: Not reviewed unless documented
Data Reviewed
-
Total Time Spent with Patient (in minutes): 41
Labs: Labs Reviewed by me
--- NOTE | 2025-01-25 14:36 | CM ---
Addendum entered by Mandy Moses 01/25/25 14:55:
ambulance berry picker scheduled for 1730; LTC facility notified
Addendum entered by Mandy Moses 01/25/25 14:41:
notified of discharge plan via phone; IMM benefit explained; form dated/timed @ 1440
Original Note:
Per Attending stable for discharge today
Plan: Return to [facility] [place] via ambulance today
Report #[phone]
--- NOTE | 2025-01-25 14:50 | W.DS.TRANS ---
DC Summary - [employer]
-
Discharge Instructions:
Discharge Diagnosis/Procedures #acute on chronic anemia
#Hx iron deficiency anemia
Additional Diets [id number]; mildly thick nectar liquid modification
Activity As tolerated
Blood Work cbc and bmp in 3-5 days
Instructions:
Stand-Alone Forms:
Changes to Home Medications: Yes
Discharge Medications:
DC Medications w/original date entered in [employer]
lisinopril 10 mg tablet 20 mg PO DAILY Blood pressure 02/12/20
aspirin 81 mg chewable tablet 81 mg PO DAILY Blood clot prevention/tx 02/23/20
amlodipine 10 mg tablet 10 mg PO DAILY 02/27/20
acetaminophen 325 mg tablet (Tylenol) 650 mg PO Q4HPRN PRN mild pain/fever>100.4 07/02/22
bisacodyl 10 mg rectal suppository 10 mg IN DAILYPRN PRN if mom ineffective 07/02/22
gabapentin 100 mg capsule 100 mg PO BID mild Pain 07/02/22
hydralazine 25 mg tablet 25 mg PO BID Blood Pressure 07/02/22
insulin glargine 100 unit/mL (3 mL) subcutaneous pen (Basaglar KwikPen U-100 Insulin) 8 unit SC HS Diabetes 07/02/22
lactulose 10 gram/15 mL oral solution 20 g PO HSPRN PRN lack of bm 07/02/22
levetiracetam 500 mg tablet (Keppra) 500 mg PO DAILY Mental Health/Anxiety 07/02/22
potassium chloride 20 mEq tablet,extended release 20 meq PO DAILY Electrolyte Repletion 07/02/22
simvastatin 20 mg tablet (Zocor) 20 mg PO HS High Cholesterol 07/02/22
tamsulosin 0.4 mg capsule 0.4 mg PO QPM Urinary Issue 07/02/22
insulin NPH isoph U-100 human 100 unit/mL subcutaneous suspension (Novolin N NPH U-100 Insulin isophane) 6 unit SC QPM Diabetes 11/28/22
insulin NPH isoph U-100 human 100 unit/mL subcutaneous suspension (Novolin N NPH U-100 Insulin isophane) 10 unit SC DAILY Diabetes 11/28/22
levetiracetam 750 mg tablet (Keppra) 750 mg PO HS Mental Health/Anxiety 10/29/23
clonazepam 0.125 mg disintegrating tablet 0.25 mg (2 x 0.125 mg) PO HS Mental Health/Anxiety #6 tabs 10/31/23
cholecalciferol (vitamin D3) 25 mcg (1,000 unit) tablet (Vitamin D3) 25 mcg PO DAILY Supplement 01/22/25
escitalopram oxalate 5 mg tablet (Lexapro) 5 mg PO DAILY Mental Health/Anxiety 01/22/25
memantine 10 mg tablet 10 mg PO BID Neurological Condition 01/22/25
ferrous sulfate 325 mg (65 mg iron) tablet 325 mg PO Q48H 30 days #15 tabs 01/25/25
pantoprazole 40 mg tablet,delayed release 40 mg PO DAILY #30 tabs 01/25/25
Home Medication Changes
ferrous sulfate 325 mg (65 mg iron) tablet 325 mg PO Q48H 30 days #15 tabs 01/25/25
pantoprazole 40 mg tablet,delayed release 40 mg PO DAILY #30 tabs 01/25/25
Pending Results: No
[2025-01-25 16:29] LABS: Glucose - Point of Care 211 mg/dl (70-99)
[2025-01-25] MEDS: PREVNAR 20 0.5 ML IM (16:30)
[2025-01-25] MEDS: NOVOLOG FLEXPEN-LOW RESISTANCE 2 UNITS SC (16:33)
[2025-01-25] MEDS: FLOMAX 0.4 MG PO (16:35)
[2025-01-25 16:38] VITALS: BP 137/58
== END 2025-01-25 19:07 | DRG 812 ==
LOC: 4 WEST ACU 18:40
PROVIDERS: Emergency Medicine; Nurse Practitioner Family; ADMITTING PHYSICIAN Student in an Organized Health Care Education/Training Program; ATTENDING PHYSICIAN Internal Medicine; CONSULT PHYSICIAN Internal Medicine Gastroenterology; EMERGENCY PHYSICIAN Emergency Medicine; FAMILY PHYSICIAN Student in an Organized Health Care Education/Training Program
PROC: 30233N1 Transfusion of Nonautologous Red Blood Cells into Peripheral Vein, Percutaneous Approach (ICD-10-PCS; 2025-01-22)
DX: D50.0 Iron deficiency anemia secondary to blood loss (chronic) (principal); F03.918 Unspecified dementia, unspecified severity, with other behavioral disturbance; N18.30 Chronic kidney disease, stage 3 unspecified; D63.1 Anemia in chronic kidney disease; E11.22 Type 2 diabetes mellitus with diabetic chronic kidney disease; E11.40 Type 2 diabetes mellitus with diabetic neuropathy, unspecified; E11.51 Type 2 diabetes mellitus with diabetic peripheral angiopathy without gangrene; E78.00 Pure hypercholesterolemia, unspecified; G47.33 Obstructive sleep apnea (adult) (pediatric); I12.9 Hypertensive chronic kidney disease with stage 1 through stage 4 chronic kidney disease, or unspecified chronic kidney disease; I25.10 Atherosclerotic heart disease of native coronary artery without angina pectoris; J44.9 Chronic obstructive pulmonary disease, unspecified; K59.00 Constipation, unspecified; N40.0 Benign prostatic hyperplasia without lower urinary tract symptoms; Z66 Do not resuscitate; Z79.4 Long term (current) use of insulin; Z79.82 Long term (current) use of aspirin; Z79.899 Other long term (current) drug therapy; Z85.46 Personal history of malignant neoplasm of prostate; Z85.51 Personal history of malignant neoplasm of bladder; Z86.0100 Personal history of colon polyps, unspecified; Z87.891 Personal history of nicotine dependence; Z95.5 Presence of coronary angioplasty implant and graft
CPT/HCPCS: 36415; 36430; 74176; 80048; 80053; 82306; 82607; 82728; 82746; 82962; 83036; 83540; 83550; 85014; 85018; 85025; 85027; 86850; 86900; 86901; 86920; 87070; 90677; 93005; 99285; 99406; G0009; J2916; P9016

== ENCOUNTER → 2025-01-31 07:29 | Outpatient (REF) | payer OTHER, MEDICARE, SELFPAY ==
[2025-01-31 10:24] LABS: Hematocrit 23.3 % (39.0-52.0); Hemoglobin 7.4 g/dL (13.0-18.0); Mean Corp Hgb Conc. 31.8 g/dL (33.0-37.0); Mean Corpuscular Volume 82.0 fL (80.0-94.0); Nucleated Red Blood Cells % 0 % (-); Platelet Count 164 10^3/uL (130-400); Red Cell Dist. Width 17.2 % (11.5-14.5)
== END ==
LOC: OLABN 07:29
PROVIDERS: ATTENDING PHYSICIAN Student in an Organized Health Care Education/Training Program
DX: D64.9 Anemia, unspecified (principal)
CPT/HCPCS: 36415; 85025

== ENCOUNTER → 2025-02-28 07:00 | Outpatient (REF) | payer MEDICARE, OTHER, SELFPAY ==
[2025-02-28 08:43] LABS: Hematocrit 22.7 % (39.0-52.0); Hemoglobin 7.0 g/dL (13.0-18.0); Mean Corp Hgb Conc. 30.8 g/dL (33.0-37.0); Mean Corpuscular Volume 84.1 fL (80.0-94.0); Nucleated Red Blood Cells % 0 % (-); Platelet Count 259 10^3/uL (130-400); Red Cell Dist. Width 17.6 % (11.5-14.5)
[2025-02-28 08:49] LABS: ALT (SGPT) 19 U/L (0-50); AST (SGOT) 16 U/L (17-59); Albumin 2.9 g/dl (3.5-5.0); Alkaline Phosphatase 66 U/L (38-126); Blood Urea Nitrogen 44 mg/dl (9-20); Calcium 8.3 mg/dl (8.4-10.2); Carbon Dioxide 22 mmol/L (22-30); Chloride 114 mmol/L (98-107); Glucose 112 mg/dl (70-99); Magnesium 2.7 mg/dl (1.6-2.3); Potassium 4.7 mmol/L (3.5-5.1); Sodium 142 mmol/L (135-145); Total Protein 5.9 g/dl (6.3-8.2); eGFR 19.80
== END ==
LOC: OLABN 07:00
PROVIDERS: ATTENDING PHYSICIAN Student in an Organized Health Care Education/Training Program
DX: R50.9 Fever, unspecified (principal); R05.9 Cough, unspecified
CPT/HCPCS: 36415; 80053; 83735; 85025